=== PATIENT | male | born 1950 | race Caucasian/White ===

== ENCOUNTER 2024-12-14 07:46 | Observation (INO) ==
--- NOTE | 2024-11-13 12:25 | PAT Medication Instructions ---
Medication Instructions Date of Service November 13, 2024 Home Medications ascorbic acid (vitamin C) 500 mg tablet (Vitamin C) 500 mg PO DAILY aspirin 81 mg capsule 81 mg PO DAILY furosemide 20 mg tablet 20 mg PO DAILY PRN Edema gabapentin 300 mg capsule 900 mg PO HS PRN Pain hydrochlorothiazide 12.5 mg tablet 12.5 mg PO QAM latanoprost 0.005 % eye drops 1 drp ophthalmic (eye) PM losartan 100 mg tablet 100 mg PO QAM metformin 500 mg tablet 500 mg PO QPM metoprolol tartrate 25 mg tablet 25 mg PO BID multivitamin 1 tab PO QAM pravastatin 80 mg tablet 80 mg PO HS semaglutide 2 mg/dose (8 mg/3 mL) subcutaneous pen injector (Ozempic) 2 mg subcut WK timolol 0.25 % eye drops 1 drp ophthalmic (eye) DAILY topiramate 25 mg tablet 25 mg PO QAM PRN Pain ASK your prescriber and surgeon aspirin 81 mg capsule 81 mg PO DAILY DO NOT take the morning of surgery ascorbic acid (vitamin C) 500 mg tablet (Vitamin C) 500 mg PO DAILY furosemide 20 mg tablet 20 mg PO DAILY PRN Edema hydrochlorothiazide 12.5 mg tablet 12.5 mg PO QAM losartan 100 mg tablet 100 mg PO QAM multivitamin 1 tab PO QAM Take morning of surgery With a small sip of water, OTHERWISE NOTHING TO EAT OR DRINK AFTER MIDNIGHT: metoprolol tartrate 25 mg tablet 25 mg PO BID timolol 0.25 % eye drops 1 drp ophthalmic (eye) DAILY topiramate 25 mg tablet 25 mg PO QAM PRN Pain (if needed) Take evening before surgery furosemide 20 mg tablet 20 mg PO DAILY PRN Edema (if needed) gabapentin 300 mg capsule 900 mg PO HS PRN Pain (if needed) latanoprost 0.005 % eye drops 1 drp ophthalmic (eye) PM metformin 500 mg tablet 500 mg PO QPM metoprolol tartrate 25 mg tablet 25 mg PO BID pravastatin 80 mg tablet 80 mg PO HS STOP 7 days prior to surgery semaglutide 2 mg/dose (8 mg/3 mL) subcutaneous pen injector (Ozempic) 2 mg subcut WK Other Notes If you have any questions please call us at [phone] or [phone] or [phone] or [phone]
--- NOTE | 2024-11-19 08:45 | Anesthesiology Consultation ---
Date of Service November 19, 2024 Assessment & Plan (1) Encounter for pre-operative examination: - Check BSG DOS - Infectious disease screening: Per assessment on 11/19/24- No known recent infectious disease contacts or current infectious disease symptoms. - GLP-1 medication instructions: Patient informed by PAT to stop 7 days prior to surgery- voiced understanding. DOS 12/14. Advised last dose to be 7/6. - Patient request: Request avoiding/limiting medications that are more likely to cause post-op memory impairment if/when possible. - Patient acceptable risk for surgery pending surgeon-ordered PCP preop evaluation (Dr. Olive Najera, "already done" per patient). Chart Review Chart Review: Patient seen in Pre Admission Testing Teaching & Discussion Pre-Anesthesia Teaching/Discussion Notes: Instructed NPO after midnight before surgery,except medications with 15 cc of water. Medication instructions provided according to the PAT guidelines. History Surgery Operation Date: 12/14/24 07:45 Proposed Procedures p L3 - S1 Decompression and Fusion Spinal Cord Monitoring - Ken Yoder, Height/Weight Height: 6 ft 1 in Weight: 132.9 kg Allergies Allergy/AdvReac Type Severity Reaction Status Date / Time No Known Allergies Allergy Verified 11/12/24 07:51 Medications Home Medications Medication Instructions Recorded Confirmed Last Taken ascorbic acid (vitamin C) 500 mg 500 mg PO DAILY 11/12/24 11/12/24 Unknown tablet (Vitamin C) aspirin 81 mg capsule 81 mg PO DAILY 11/12/24 11/12/24 Unknown furosemide 20 mg tablet 20 mg PO DAILY PRN Edema 11/12/24 11/12/24 Unknown gabapentin 300 mg capsule 900 mg PO HS PRN Pain 11/12/24 11/12/24 Unknown hydrochlorothiazide 12.5 mg tablet 12.5 mg PO QAM 11/12/24 11/12/24 Unknown latanoprost 0.005 % eye drops 1 drp ophthalmic (eye) PM 11/12/24 11/12/24 Unknown losartan 100 mg tablet 100 mg PO QAM 11/12/24 11/12/24 Unknown metformin 500 mg tablet 500 mg PO QPM 11/12/24 11/12/24 Unknown metoprolol tartrate 25 mg tablet 25 mg PO BID 11/12/24 11/12/24 Unknown multivitamin 1 tab PO QAM 11/12/24 11/12/24 Unknown pravastatin 80 mg tablet 80 mg PO HS 11/12/24 11/12/24 Unknown semaglutide 2 mg/dose (8 mg/3 mL) 2 mg subcut WK 11/12/24 11/12/24 Unknown subcutaneous pen injector (Ozempic) timolol 0.25 % eye drops 1 drp ophthalmic (eye) DAILY 11/12/24 11/12/24 Unknown topiramate 25 mg tablet 25 mg PO QAM PRN Pain 11/12/24 11/12/24 Unknown Past Medical History Medical History Arthritis Chronic low back pain Diabetes Dyslipidemia Edema of both lower legs Occasional, takes PRN lasix approximately once/month Glaucoma (increased eye pressure) HTN (hypertension) Sleep apnea CPAP (compliant) Spinal stenosis Exercise / Class Metabolic Activity III < 4 Walking/Shop/Light housework (uses cane) Past Surgical History Surgical History History of bilateral knee replacement x2 History of right hip replacement ~2022 Hx of appendectomy Hx of bilateral cataract extraction Hx of cholecystectomy Hx of colonoscopy Hx of hand surgery Past Anesthesia History No Hx of Anesthesia Complications and No Family Hx of Anesthesia Complications History of PONV No Hx of PONV and No Hx of Motion Sickness Social History Smoking Status: Former smoker Do You Dip or Chew Tobacco: No Smoking End Date: Quit 30 years ago Hx Alcohol Use: No Hx Substance Use: No substance use type: does not use Review of Systems Patient denies chest pain, shortness of breath, fever, chills, cough, wheezing. Physical Exam Vital Signs BP 133/76 P 56 TEMP 97.6 SP02 95%RA RESP 56 Physical Full cervical extension range of motion. Full TMJ range of motion. TMD > 3.5 finger breaths Mallampati Score II Dentition: missing molars Lungs: clear throughout to auscultation Cardiac: regular rate and rhythm, no murmurs noted Spine: normal Carotid arteries: negative bruit Extremities: no LE edema Lab Results Anesthesia Preop Results Results Anesthesia Widget: WBC 9.92 K/ul (4.8-10.8) 11/19/24 Hgb 14.1 g/dl (14.0-18.0) 11/19/24 Hct 41.4 % (42.0-52.0) L 11/19/24 Plt 191 K/uL (130-400) 11/19/24 Na 135 mmol/L (136-145) L 11/19/24 K 3.7 mmol/L (3.5-5.1) 11/19/24 Cl 101 mmol/L (98-107) 11/19/24 CO2 29 mmol/L (21-32) 11/19/24 BUN 17 mg/dl (6-23) 11/19/24 Creat 0.98 mg/dl (0.6-1.4) 11/19/24 Glucose Level 121 mg/dl (70-99(Fasting)) H 11/19/24 PT 10.7 Seconds (9.0-12.0) 11/19/24 PTT 28 Seconds (21-31) 11/19/24 INR 1.0 (0.9-1.1) 11/19/24 HA1c 6.8 % (4.5-5.6) H 11/19/24 Urine Color Yellow 11/19/24 Urine Appearance Clear (Clear) 11/19/24 Urine pH 5.0 (4.5-7.5) 11/19/24 Urine Specific [place] 1.022 (1.000-1.030) 11/19/24 Urine Protein Negative (Negative) 11/19/24 Urine Glucose (UA) Negative (Negative) 11/19/24 Urine Ketones Trace (Negative) H 11/19/24 Urine Blood Negative (Negative) 11/19/24 Urine Nitrite Negative (Negative) 11/19/24 Urine Bilirubin Negative (Negative) 11/19/24 Urine Urobilinogen Negative (Negative) 11/19/24 Urine Leukocyte Esterase Negative (Negative) 11/19/24 Blood Type A Positive 11/19/24 Antibody Screen NEGATIVE 11/19/24 Testing Laboratory Results Urine nicotine metabolite- positive (surgeon's office made aware) Electrocardiogram Date: 11/19/24 SB at 56bpm. "Otherwise normal ECG" Chest X-Ray Date: 11/19/24 FINDINGS: There is mild cardiomegaly without pulmonary vascular congestion. No effusion or consolidation. Stable mild elevation of the left hemidiaphragm. IMPRESSION: No acute findings.
[~2024-12-14 07:46] MED LIST: LIDOCAINE 2% 2 ML VIAL/AMP(20MG/ML) INFIL ONE; MIDAZOLAM HCL 1 MG/ML 2ML VIAL ONE; ONDANSETRON INJ 2 MG/ML 2 ML VIAL ONE; PROPOFOL IV EMULSION 10 MG/ML 100 ML VIAL IV ONE; PROPOFOL IV EMULSION 10 MG/ML 20 ML VIAL IV ONE; ROCURONIUM BROMIDE 10 MG/ML 5 ML VIAL IV ONE; SUGAMMADEX SODIUM 200 MG/2 ML VIAL IV ONE
[2024-12-14] MEDS ORDERED: PROMETHAZINE HCL 6.25 MG in SODIUM CHLORIDE 0.9% 50 ML IV PRN (08:11)
[2024-12-14] MEDS ORDERED: ATROPINE SULFATE 0.1 MG/ML 10ML SYR IV PRN (08:11)
[2024-12-14] MEDS: LR 15ML/HR IV SCH (08:25)
[2024-12-14] MEDS: LR 60ML/HR IV SCH (08:25)
[2024-12-14] MEDS: GABAPENTIN 300 MG CAP PO SCH (08:26)
[2024-12-14] MEDS: CeleBREX 200 MG CAP PO SCH (08:26)
[2024-12-14] MEDS: ACETAMINOPHEN 500 MG TAB PO SCH (08:26)
--- NOTE | 2024-12-14 08:54 | History & Physical Bridge Note ---
Date of Service December 14, 2024 History & Physical Bridge Note I have examined the patient, reviewed the History & Physical and in the interval since the performance of the History & Physical I have noted the following changes of clinical significance: no changes noted
--- NOTE | 2024-12-14 08:55 | History & Physical Report ---
Date of Service December 14, 2024 Assessment & Plan (1) Lumbosacral spondylosis with radiculopathy: Plan: L3-S1 decompression fusion History of Present Illness Chief Complaint: Back and bilateral leg pain Primary Care Provider: Olive Najera DO This is a 74-year-old male who presents for chronic persistent back and bilateral knee pain failing since course of nonoperative care is here for surgical intervention. Allergies Allergy/AdvReac Type Severity Reaction Status Date / Time No Known Allergies Allergy Verified 12/14/24 07:57 Home Medications Medication Instructions Recorded Confirmed Type ascorbic acid (vitamin C) 500 mg 500 mg PO DAILY 11/12/24 12/14/24 History tablet (Vitamin C) aspirin 81 mg capsule 81 mg PO DAILY 11/12/24 12/14/24 History furosemide 20 mg tablet 20 mg PO DAILY PRN Edema 11/12/24 12/14/24 History gabapentin 300 mg capsule 900 mg PO HS PRN Pain 11/12/24 12/14/24 History hydrochlorothiazide 12.5 mg tablet 12.5 mg PO QAM 11/12/24 12/14/24 History latanoprost 0.005 % eye drops 1 drp ophthalmic (eye) PM 11/12/24 12/14/24 History losartan 100 mg tablet 100 mg PO QAM 11/12/24 12/14/24 History metformin 500 mg tablet 500 mg PO QPM 11/12/24 12/14/24 History metoprolol tartrate 25 mg tablet 25 mg PO BID 11/12/24 12/14/24 History multivitamin 1 tab PO QAM 11/12/24 12/14/24 History pravastatin 80 mg tablet 80 mg PO HS 11/12/24 12/14/24 History semaglutide 2 mg/dose (8 mg/3 mL) 2 mg subcut WK 11/12/24 12/14/24 History subcutaneous pen injector (Ozempic) timolol 0.25 % eye drops 1 drp ophthalmic (eye) DAILY 11/12/24 12/14/24 History topiramate 25 mg tablet 25 mg PO QAM PRN Pain 11/12/24 12/14/24 History Past Med/Surg History Problem List (Updated 12/14/24 @ 08:55 by Ken Yoder DO) Lumbosacral spondylosis with radiculopathy Encounter for pre-operative examination Medical History Arthritis Chronic low back pain Diabetes Dyslipidemia Edema of both lower legs Occasional, takes PRN lasix approximately once/month Glaucoma (increased eye pressure) HTN (hypertension) Sleep apnea CPAP (compliant) Spinal stenosis Surgical History History of bilateral knee replacement x2 History of right hip replacement ~2022 Hx of appendectomy Hx of bilateral cataract extraction Hx of cholecystectomy Hx of colonoscopy Hx of hand surgery Social History Smoking Status: Former smoker Tobacco Type: Cigarettes Smoking End Date: Quit 30 years ago; Second Hand Exposure: No; Do You Dip or Chew Tobacco: No; Tobacco Cessation Education Requested by Patient: No Hx Alcohol Use: No Hx Substance Use: No Preferred Language: Spanish Communication Ability: Effective Speech And Language Specialist Required: No Beliefs That Will Affect Care: None Current Living Situation: Spouse Other Information That Helps Us Care for You: No Feels Safe at Home: Yes Safety Concerns: Feels Safe At This Time Assistive Devices: Cane, CPAP and Glasses Physical Exam Physical Exam: Patient is alert and oriented Heart regular in rhythm Lungs clear Results & Data Results & Data Vital Signs (Past 12 Hours) Vital Signs Temp Pulse Resp BP Pulse Ox O2 Del Method 12/14/24 08:07 36.7 C 59 L 20 172/69 H 96 Room Air
[2024-12-14] MEDS ORDERED: PHENYLEPHRINE 100MCG/ML 5ML SYR ONE (09:07)
[2024-12-14] MEDS ORDERED: ePHEDrine sulfate 50 MG/5 ML SYR ONE (09:07)
[2024-12-14] MEDS: ceFAZolin 3000MG 3,000 MG/72.5 ML BAG IV SCH ×2 (09:23→17:02)
[2024-12-14] MEDS ORDERED: DEXAMETHASONE SOD INJ 4 MG/ML VIAL ONE (09:33)
[2024-12-14] MEDS ORDERED: GLYCOPYRROLATE 0.2 MG/ML VIAL ONE (09:56)
[2024-12-14] MEDS ORDERED: ROCURONIUM BROMIDE 10 MG/ML 5 ML VIAL IV ONE (09:59)
[2024-12-14] MEDS: ceFAZolin 330 MG/ML 1 GM VIAL ONE (10:15)
[2024-12-14] MEDS: BUPIVACAINE/EPINEPHRINE 0.25% 1:200,000 30 ML VIAL ONE (10:15)
[2024-12-14] MEDS ORDERED: PROPOFOL IV EMULSION 10 MG/ML 100 ML VIAL IV ONE (10:22)
[2024-12-14] MEDS: FLOSEAL HEMOSTATIC MATRIX 10ML TOP ONE (11:58)
[2024-12-14] MEDS ORDERED: ALBUMIN HUMAN 5% 12.5 GM/250 ML VIAL IV ONE (12:03)
[2024-12-14] MEDS ORDERED: HYDROmorphone INJ 2 MG/ML SYR/VIAL ONE (12:15)
--- NOTE | 2024-12-14 12:21 | Operative Report ---
Post Operative Report Pre & Post Diagnosis Operation Date: 12/14/24 09:15 Pre-Op Diagnosis: Lumbosacral spondylosis with radiculopathy Post-Op Diagnosis: Lumbosacral spondylosis with radiculopathy I identified the patient and participated in the time-out.: Yes Procedure Operation Date: 12/14/24 09:15 Actual Procedures #1 lumbar decompression with bilateral medial facetectomies and foraminotomies L3-L4, L4-L5 and L5-S1. #2 posterior spinal fusion L3-S1. #3 placement posterior segmental instrumentation L3-S1 using [place]. #4 interbody fusion L3-L4 L4-L5 #5 placement of Spira 13 x 26 mm at L3-L4 and 14 x 26 mm x 2 at L4- L5 #6 placement locally harvested to my side autograft in the posterior gutters. #7 placement infuse collagen sponge combined with Koros in the posterior lateral gutters and os design interbody space. #8 application of versa wrap over the exposed dura. Surgeon Ken Yoder, DO [employer] Service Advisor Betty Borrero Estimated Blood Loss 1,000 Findings See Below The patient is 6 foot 1 weighing over 134 kg with a BMI in excess of 39. This combined with an EBL of greater than 1000 cc. His significant technical difficulty with positioning exposure and the procedure itself. This had at least 50% increased operative time. Recommending a modifier 22. Specimens None Indications This is a 74-year-old male presents from his diagnosis after failing course of nonoperative care is here for surgical invention. Description of Procedure Patient was met with identified informed consent obtained. Patient was then taken to the operative suite underwent intubation placed in the prone position on the Lane table on top of the Gael frame. All bony prominences well- padded eyes inspected to ensure no external pressure placed upon them. This point lumbar spine was prepped and draped in the normal sterile fashion. Sharp dissection with the assistance of Bovie cautery was performed down to and exposing the lamina transverse processes of L3-L4-L5 and the sacral ala bilaterally. From a [place] 5 fashion complete laminectomy of L5 L4 and L3 was performed including bilateral medial facetectomies and foraminotomies addressing severe neural compression. Pedicle screws then placed in L3-L4-L5 and S1 levels bilaterally with assistance of fluoroscopy and the purposes annalise placed. 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 I did a pproach L4-L5 by way of a transforaminal approach on the left a discectomy was performed endplates cut to distal cortical bleeding bone and a 14 x 26 mm spiral cage tapped into position. Then proceeded to the right transforaminal region at L4-5. Again discectomy performed. Endplates coated to subcortical bleeding bone. A second 14 x 26 mm spiral cage tapped in position. Then proceeded to L3-L4 and bilayer transforaminal approach on the right a complete discectomy was performed endplates corrected to subcortical bleeding bone and a 13 x 26 mm spiral cage tapped into position. Please note all cages were filled with loss design bone graft. The rods were then locked in a final position bilaterally. The transverse processes of L3-L4-L5 and sacral ala burred to subcortical being bone. Infuse collagen sponge, with Koros and local autograft placed posterior lateral gutters. First wrap placed over the exposed dura. 15 round SUZANNA drain inserted. The incision was then closed with 1 Vicryl the fascia 2-0 Vicryl subcutaneously and 4-0 Monocryl for final skin closure. Steri-Strips sterile dressing placed. Patient waken taken to PACU stable condition. Please note Betty Borrero was present at the entire procedure and all the patient positioning complex portion of the surgery and final skin closure. I attest to the content of the Intraoperative Record and any orders documented therein. Any exceptions are noted below.
--- NOTE | 2024-12-14 12:35 | Fluoroscopy Report ---
FL lumbar spine 2-3V CLINICAL HISTORY: L3-S1 DECOMP AND FUSION COMPARISON STUDY: None FLUOROSCOPY TIME: 24 seconds FLUOROSCOPY IMAGES: 4 EXPOSURE DOSE: 25 mGy FINDINGS: Fluoroscopy was provided for lumbar metallic fusion. IMPRESSION: Intraoperative fluoroscopy. ACT 112: Negative or not required by law. Electronically signed by: Fabrice Antoine M.D. 12/14/2024 12:33 PM
[2024-12-14] MEDS: HYDROmorphone INJ 2 MG/ML SYR/VIAL IV PRN (13:10)
[2024-12-14 13:24] LABS: Hematocrit (blood only) 37.5 % (42.0-52.0); Hemoglobin 12.4 g/dl (14.0-18.0)
[2024-12-14] MEDS ORDERED: GABAPENTIN 300 MG CAP PO PRN (14:28)
[2024-12-14] MEDS ORDERED: ACETAMINOPHEN 500 MG TAB PO PRN (14:28)
[2024-12-14] MEDS ORDERED: LORazepam 0.5 MG TAB PO PRN (14:28)
[2024-12-14] MEDS ORDERED: PROMETHAZINE 12.5 MG/50.5 ML BAG IV PRN (14:28)
[2024-12-14] MEDS ORDERED: FAMOTIDINE 20 MG TAB PO PRN (14:28)
[2024-12-14] MEDS ORDERED: ACETAMINOPHEN 1,000 MG/100 ML VIAL IV PRN (14:28)
[2024-12-14] MEDS ORDERED: NALOXONE HCL 0.4 MG/1 ML VIAL/CARP IV PRN (14:28)
[2024-12-14] MEDS ORDERED: ONDANSETRON INJ 2 MG/ML 2 ML VIAL IV PRN (14:28)
[2024-12-14] MEDS ORDERED: ALUMINUM/MAGNESIUM SUSP 30 ML UDC PO PRN (14:28)
[2024-12-14] MEDS ORDERED: SOD PHOSPHATE/SOD BIPHOSPHATE ENEMA 132 ML BTL PR PRN (14:28)
[2024-12-14] MEDS ORDERED: MAGNESIUM HYDROXIDE SUSP 30 ML UDC PO PRN (14:28)
[2024-12-14] MEDS ORDERED: TOPIRAMATE 25 MG TAB PO PRN (14:28)
[2024-12-14] MEDS ORDERED: HYDROmorphone INJ 1 MG/ML SYRINGE IV PRN (14:28)
[2024-12-14] MEDS ORDERED: PHARMACY GLYCEMIC MGMT CONSULT PRN (14:28)
[2024-12-14] MEDS ORDERED: METOCLOPRAMIDE HCL INJ 5 MG/ML 2 ML VIAL IV PRN (14:28)
[2024-12-14] MEDS ORDERED: diphenhydrAMINE Capsule 25 MG CAP PO PRN (14:28)
[2024-12-14] MEDS ORDERED: DO NOT ADMINISTER PNEUMOCOCCAL VACCINE PRN (14:28)
[2024-12-14] MEDS ORDERED: DO NOT ADMINISTER FLU VACCINE PRN (14:28)
[2024-12-14] MEDS ORDERED: ONDANSETRON 4 MG OD TAB PO PRN (14:28)
[2024-12-14] MEDS ORDERED: HYDROmorphone INJ 0.5 MG/0.5 ML SYR IV PRN (14:28)
[2024-12-14] MEDS ORDERED: GLUCOSE 40% GEL 15 GM TUBE PO PRN (14:45)
[2024-12-14] MEDS ORDERED: CARBOHYDRATES FOR HYPOGLYCEMIA PO PRN (14:45)
[2024-12-14] MEDS ORDERED: GLUCOSE 10 TAB/TUBE PO PRN (14:45)
[2024-12-14] MEDS ORDERED: DEXTROSE 50% 50 ML SYRINGE IV PRN (14:45)
[2024-12-14] MEDS ORDERED: GLUCAGON FOR INJ 1 MG VIAL SQ PRN (14:45)
--- NOTE | 2024-12-14 14:48 | Anesthesiology Progress Note ---
Date of Service December 14, 2024 Anesthesia Post Procedure Vital Signs Vital Signs: Temp Pulse Pulse Resp BP Pulse Ox O2 Del Method 12/14/24 14:30 Nasal Cannula 12/14/24 14:30 36.5 C 62 18 114/72 95 Nasal Cannula 12/14/24 13:55 36.4 C L 68 12 132/68 93 Nasal Cannula 12/14/24 13:45 66 12 140/74 93 Nasal Cannula 12/14/24 13:30 64 12 129/77 94 Oxymask 12/14/24 13:20 66 12 147/69 H 95 Oxymask 12/14/24 13:10 71 14 154/70 H 94 Oxymask 12/14/24 13:00 76 12 143/70 H 92 Oxymask 12/14/24 12:49 36.4 C L 76 12 133/56 L 93 Oxymask 12/14/24 08:07 36.7 C 59 L 20 172/69 H 96 Room Air O2 Flow Rate 12/14/24 14:30 3 12/14/24 14:30 3 12/14/24 13:55 3 12/14/24 13:45 3 12/14/24 13:30 4 12/14/24 13:20 8 12/14/24 13:10 8 12/14/24 13:00 10 12/14/24 12:49 10 12/14/24 08:07 Pain Intensity Back: Pain Intensity: 7 Transfer of Care Handoff Completed per policy Notes Mental Status: alert / awake / arousable and participated in evaluation Nausea / Vomiting: adequately controlled Pain: adequately controlled Airway Patency, RR, SpO2: stable & adequate BP & HR: stable & adequate Hydration State: stable & adequate Anesthetic Complications: no major complications apparent and Pt Satisfied with anesthetic care
--- NOTE | 2024-12-14 14:48 | Pharmacy Report ---
Pharmacy Glycemic Short Note 2 - Date of Service December 14, 2024 - Glycemic Short BSG Results (Last 24 hours): 12/14/24 08:42 POC Glucose 138 H OUTPATIENT ANTIDIABETIC REGIMEN: * metformin 500 mg qpm, ozempic 2 mg SQ weekly ASSESSMENT: * 74 year old s/p surgery, POD 0 - pharmacy consulted for glycemic management. BSG 138 mg/dL this AM - no postop BSG drawn yet, however did pull IV steroids in OR therefore anticipate steroid induced hyperglycemia. Will order novolog ACHS and add on scale for Lantus at dinner if BSGs start to increase. PLAN FOR INPATIENT GLYCEMIC CONTROL: * Hold outpatient oral diabetes medications * Basal insulin * Lantus 0-15 units today at 1700 * Bolus insulin * NovoLog per scale ACHS or Q6hrs while NPO * Goal Range: Low 110 mg/dL - High 140 mg/dL * Correction Factor: 20 mg/dL/unit * Nutritional / Prandial insulin per carb ratio of 1 unit per 7 grams CHO consumed
[2024-12-14] MEDS: LANTUS PER UNIT CHARGE SC SCH (16:56)
[2024-12-14] MEDS: INSULIN ASPART PER UNIT CHARGE SC SCH (17:02)
--- NOTE | 2024-12-14 19:12 | Hospitalist Progress Note ---
Date of Service December 14, 2024 Assessment & Plan (1) Diabetes: (2) HTN (hypertension): Plan #Status post lumbar spine surgeryper orthopedics #diabeteshe notes good control at home. Fingersticks and supplemental insulin. Role into basal bolus regimen if necessary. Pharmacy glycemic consult has been placed by orthopedics #Hypertensioncontinue on home medications. Follow blood pressure. #dyslipidemiacontinue pravastatin #DVT prophylaxisper orthopedics (SCDs and teds) Admission and Anticipated Discharge Date Admission Date: December 14, 2024 Subjective Seen postop for consult for medication management. Patient's main chronic medical problems are hypertension (he notes well-controlled) and diabetes (notes his last A1c was less than 7) currently his pain is under good control. No active complaints. Review of Systems Review of Systems: All systems reviewed & are unremarkable except as noted in HPI & below Physical Exam Physical Exam: In general he is awake and alert pleasant no distress. HEENT normocephalic atraumatic mucous membranes moist. Breathing unlabored no accessory muscle use good effort. Skin without rashes pallor or icterus. Neuro without focal def icits. Results & Data Results & Data Vital Signs (Past 12 Hours) Vital Signs Temp Pulse Pulse Resp BP Pulse Ox O2 Del Method 12/14/24 17:30 98.4 F 57 L 18 175/80 H 98 Room Air 12/14/24 16:48 69 18 151/80 H 100 Nasal Cannula 12/14/24 15:22 57 L 16 138/81 98 Nasal Cannula 12/14/24 15:05 97.3 F L 58 L 18 135/78 98 Nasal Cannula 12/14/24 14:30 Nasal Cannula 12/14/24 14:30 97.7 F 62 18 114/72 95 Nasal Cannula 12/14/24 13:55 97.5 F L 68 12 132/68 93 Nasal Cannula 12/14/24 13:45 66 12 140/74 93 Nasal Cannula 12/14/24 13:30 64 12 129/77 94 Oxymask 12/14/24 13:20 66 12 147/69 H 95 Oxymask 12/14/24 13:10 71 14 154/70 H 94 Oxymask 12/14/24 13:00 76 12 143/70 H 92 Oxymask 12/14/24 12:49 97.5 F L 76 12 133/56 L 93 Oxymask 12/14/24 08:07 98.1 F 59 L 20 172/69 H 96 Room Air O2 Flow Rate 12/14/24 17:30 12/14/24 16:48 2 12/14/24 15:22 2 12/14/24 15:05 3 12/14/24 14:30 3 12/14/24 14:30 3 12/14/24 13:55 3 12/14/24 13:45 3 12/14/24 13:30 4 12/14/24 13:20 8 12/14/24 13:10 8 12/14/24 13:00 10 12/14/24 12:49 10 12/14/24 08:07 PG Care Time/CCT Total # of Minutes Spent Total Time Spent with Patient: Total time spent is greater than 50% in coordination of care (as documented) at patient's floor/unit and/or counseling patient: Coding Level of Care Code 06778 SUB INP/OBS CARE 2/35MIN Diagnoses Diabetes E11.9 HTN (hypertension) I10
[2024-12-14] MEDS: DOCUSATE SODIUM/SENNA 50/8.6MG TAB PO SCH (21:29)
[2024-12-14] MEDS: LATANOPROST 0.005% OP SOLN 2.5 ML BTL OP SCH (21:30)
[2024-12-14] MEDS: PRAVASTATIN SOD 40 MG TAB PO SCH (21:32)
[2024-12-14] MEDS: METOPROLOL TARTRATE 25 MG TAB PO SCH (21:32)
[2024-12-15] MEDS: INSULIN ASPART PER UNIT CHARGE SC SCH (00:21)
[2024-12-15] MEDS: POLYETHYLENE (MIRALAX) 17 GM PACK PO SCH (06:01)
[2024-12-15 06:04] LABS: Hematocrit (blood only) 33.3 % (42.0-52.0); Hemoglobin 10.9 g/dl (14.0-18.0); Immature Granulocytes # (auto) 0.08 K/uL (0.01-0.20); Immature Granulocytes % (auto) 0.6 %; Mean Corpuscular Hemoglobin 30.1 pg (25.0-34.0); Mean Corpuscular Volume 92.0 fL (80.0-100.0); Platelet Count 160 K/uL (130-400); RDW Standard Deviation 46.6 fL (36.4-46.3); Red Blood Count 3.62 M/uL (4.70-6.10); White Blood Count 13.76 K/ul (4.8-10.8)
[2024-12-15 06:21] LABS: Anion Gap 5.0 (3-11); Blood Urea Nitrogen 19.0 mg/dl (6-23); Calcium 8.5 mg/dl (8.6-10.3); Carbon Dioxide 30.0 mmol/L (21-32); Chloride 100.0 mmol/L (98-107); Creatinine Clr Calc Pharmacy 86.1 ml/min; Glucose 145.0 mg/dl (70-99(Fasting)); Potassium 4.6 mmol/L (3.5-5.1); Sodium 135.0 mmol/L (136-145)
[2024-12-15] MEDS: hydroCHLOROthiazide 25 MG TAB PO SCH (08:01)
[2024-12-15] MEDS: MULTIVITAMIN TAB PO SCH (08:02)
[2024-12-15] MEDS: FUROSEMIDE 20 MG TAB PO PRN (08:02)
[2024-12-15] MEDS: ASPIRIN 81 MG ECTAB PO SCH (08:02)
[2024-12-15] MEDS: LOSARTAN POTASSIUM 50 MG TAB PO SCH (08:02)
[2024-12-15] MEDS: ASCORBIC ACID 500 MG TAB PO SCH (08:03)
[2024-12-15] MEDS: TIMOLOL MALEATE 0.25% OP SOLN 5 ML BTL OP SCH (08:03)
[2024-12-15] MEDS: dexAMETHasone 6 MG in SYRINGE 0 ML IV SCH (08:04)
--- NOTE | 2024-12-15 13:33 | Orthopedic Progress Note ---
Date of Service December 15, 2024 Assessment & Plan (1) Lumbosacral spondylosis with radiculopathy: Plan: This time we will continue physical therapy monitor his SUZANNA output anticipate discharge home in the next few days. Admission and Anticipated Discharge Date Admission Date: December 14, 2024 Subjective Back pain is controlled leg pain improved Physical Exam Physical Exam: Patient is in the chair at the bedside. Discussing the testing. Is comfor table. Results & Data Vital Signs (Past 12 Hours) Vital Signs Temp Pulse Resp BP Pulse Ox O2 Del Method 12/15/24 11:00 37 C 74 16 127/70 98 Room Air 12/15/24 07:02 37 C 76 16 137/62 98 Room Air 12/15/24 07:00 CPAP 12/15/24 03:25 36.5 C 64 18 132/70 97 Room Air Queries Orthopedic Spine Acute Posthemorrhagic Anemia: Yes Obesity: Yes
--- NOTE | 2024-12-15 17:56 | Communication Note ---
Date of Service: December 15, 2024 chart reviewed, pt sleeping comfortably when i went to see him. BP reasonable, sugars being managed by glycemic pharmacist, acute blood loss anemia (not un expected given surgery) noted but he is hemodynamically stable/no intervention appears to be needed. hospitalist team will sign off at this time, available if we can be of any assistance
--- NOTE | 2024-12-16 09:24 | Orthopedic Progress Note ---
Date of Service December 16, 2024 Assessment & Plan (1) Lumbosacral spondylosis with radiculopathy: Plan: At this time continue physical therapy monitor his SUZANNA output anticipate discharge home tomorrow. Admission and Anticipated Discharge Date Admission Date: December 14, 2024 Subjective Back pain controlled leg symptoms improved. Physical Exam Physical Exam: Patient in chair at the bedside. Comfortable. Distracted testing. Results & Data Vital Signs (Past 12 Hours) Vital Signs Temp Pulse Resp BP Pulse Ox O2 Del Method 12/16/24 08:49 Room Air 12/16/24 08:25 36.6 C 91 H 16 126/70 91 Room Air 12/15/24 21:36 Room Air Queries Orthopedic Spine Acute Posthemorrhagic Anemia: Yes Obesity: Yes
--- NOTE | 2024-12-16 09:50 | Pharmacy Report ---
Pharmacy Glycemic Short Note 2 - Date of Service December 16, 2024 - Glycemic Short BSG Results (Last 24 hours): 12/15/24 12/15/24 12/15/24 11:33 16:35 20:00 POC Glucose 140 H 154 H 146 H 12/16/24 07:27 POC Glucose 121 H OUTPATIENT ANTIDIABETIC REGIMEN: * metformin 500 mg qpm, ozempic 2 mg SQ weekly * HbA1c 6.8% (11/19/24) ASSESSMENT: 12/16 * Fabrice received 21 units of bolus insulin yesterday * Fasting BSG this AM within goal range, no indication for basal insulin at this time. * No changes to NovoLog, currently at a weight based stress of 2.5, dexamethasone 6mg IV daily day 07/06 today 12/14 * 74 year old s/p surgery, POD 0 - pharmacy consulted for glycemic management. BSG 138 mg/dL this AM - no postop BSG drawn yet, however did pull IV steroids in OR therefore anticipate steroid induced hyperglycemia. Will order novolog ACHS and add on scale for Lantus at dinner if BSGs start to increase. PLAN FOR INPATIENT GLYCEMIC CONTROL: * Hold outpatient oral diabetes medications * Basal insulin * hold * Bolus insulin * NovoLog per scale ACHS or Q6hrs while NPO * Goal Range: Low 110 mg/dL - High 140 mg/dL * Correction Factor: 20 mg/dL/unit * Nutritional / Prandial insulin per carb ratio of 1 unit per 7 grams CHO consumed
[2024-12-16 21:17] VITALS: RESP 18
[2024-12-17 08:13] VITALS: BP 158/73; PULSE 72; TEMP 97.5; O2SAT 98
--- NOTE | 2024-12-17 08:19 | Discharge Summary ---
Date of Service December 17, 2024 Admission HPI Per Admitting Provider This is a 74-year-old male who presents for chronic persistent back and bilateral knee pain failing since course of nonoperative care is here for surgical intervention. Admission Exam (Per Admitting) Constitutional WD/WN, vitals as above Eyes normal visual arriola by confrontation ENMT external ear and nose normal, oropharynx normal Neck normal visual inspection Respiratory normal respiratory effort Cardiovascular Extremities: normal capillary refill Gastrointestinal (Abdomen) Inspection/Auscultation: abdomen normal to inspection Musculoskeletal Spine: + pain with thoraco-lumbar ROM Extremities: extremities normal to inspection and strength 5/5 throughout Skin no rashes, warm and dry Neurologic normal touch/pain/proprioception and moves all extremities Psychiatric A+Ox3, euthymic affect Eye Contact: good eye contact Discharge Data Consultations 12/14/24 14:28 Consult Hospitalist Routine Procedures Performed Operation Date: 12/14/24 09:15 Actual Procedures p L3-S1 Decompression and Fusion(Not Applicable) - Ken Yoder, Hospital Course (1) Lumbosacral spondylosis with radiculopathy: Fabrice is being discharged home on postoperative day 3 status post L3-S1 decompression and fusion. He has had an uneventful hospital course. He is being discharged home today. He is making great progress in physical therapy. Pain is controlled. He has had a bowel movement. Lab values have been stable Discharge Instructions ACTIVITY RECOMMENDATIONS: SELF CARE INSTRUCTIONS AFTER THORACIC/LUMBAR FUSIONS 1. You may walk to your tolerance. It is good exercise for your legs and back. Expect some back and intermittent leg aches and pains. 2. You may perform "counter-top" level activities (make a sandwich, isi with a project, etc.). 3. No bending or lifting of more than 10 pounds or back twisting of any nature (roll like a log when turning in bed). 4. You may ride in a car for 20-30 minutes at a time. No driving until after your first visit with your doctor. 5. Frequent changes of position and restricting sitting to 30 minutes at a time will help limit the amount of back spasms and stiffness you may experience. 6. You may discontinue the use of ambulatory aids (cane, crutches, etc.) once your strength and confidence allow. 7. You may bioprocess engineer the shower and let water strike your incision when you arrive home at least once daily. Do not take a tub bath, sit in a hot tub or go into a swimming pool until after your first recheck in the office. 8. You may resume previous diet. SPECIAL CARE INSTRUCTIONS: VERY IMPORTANT TO READ AND REVIEW A. Your surgical incision has been closed with a cosmetic suture under the skin that will dissolve in about 6 weeks. In 14 days, you can use a pair of clean scissors and cut the suture that is left outside of the skin at the ends of your incision. 1. The small skin tapes can be removed 7 days after surgery if they have not fallen off by that point. 2. You may keep the wound open to air as much as possible to promote healing after post-op day number 5 unless told otherwise by your doctor. 3. If you think the wound looks like it is becoming infected (redness or worsening drainage) and/or you are experiencing fever, chill or worsening back pain and muscle spasms, contact the office so that we may evaluate you as soon as possible. B. Complications are uncommon, but please contact us if you have any signs or symptoms of: 1. wound infection (fever higher than 102.5 degrees F, redness, separation of wound, drainage, or increasing pain from the incision) 2. blood clots in legs (pain, swelling, redness and warmth in legs) 3. urinary tract infection (fever higher than 102.5 degrees F, burning upon urination or increased frequency of urination) 4. nerve problems (inability to walk on your toes or heels, numbness, loss of bowel or bladder control) 5. any other symptoms that concern you C. Please call the office at if you have any concerns or questions about your operation or recovery. D. No smoking! Smoking drastically decreases the chance of a solid fusion. E. Do not take any anti-inflammatory medications (Indocin, Advil, Motrin, Aspirin, Naprosyn, etc.) as these may inhibit the chance of a solid fusion. Tylenol is okay to take for pain. MANAGING PAIN AFTER SPINAL SURGERY 1. Narcotic medication is intended for short-term use and will be provided for surgical pain. Surgical pain usually lasts for a period of 4-6 weeks. Narcotic medication includes Percocet, Vicodin, Darvocet, Tylenol #3 or Lortab. 2. Longer-term pain is more appropriately treated with non-narcotic medication such as Tylenol ES. 3. Muscle spasm is not appropriately treated with narcotics. Muscle relaxers such as Soma, Flexeril or Skelaxin can be used along with Tylenol ES. 4. Remember that we all live with some "aches and pains". This is not unusual or uncommon after an injury or as we get older. a. Back pain is expected and may include muscle spasms for 4 to 6 weeks after surgery. The pain should gradually improve. If the pain worsens for no apparent reason, please contact the office. b. Intermittent leg pain may also be experienced and should not be concerned about unless it worsens for no apparent reason. If so, please contact the office. 5. We will provide appropriate medication within the normal guidelines of their prescribed use. We will also be very cautious and aware of potential abuse and extended duration of patients' medication needs. a. Pain medications are for your comfort and to assist with sleep and rest so that the tissue can heal. They are not provided in order to return to normal activity and should not be used through the day. To do so or worsening pain at night can result from ongoing tissue damage and development of tolerance to the prescribed medicine. 6. Please allow 2-3 days to process refills. Prescriptions will not be mailed but must be picked up at the office. FOLLOW UP VISIT: Keep your scheduled follow-up appointment. Any questions, please call the office at .
== END 2024-12-17 10:57 | disposition home or self-care (01) ==
LOC: ASU 07:46 → 3E 12:24 → INTOOBSV 12:24

== ENCOUNTER 2024-12-20 10:05 | Inpatient (IN) ==
--- NOTE | 2024-12-20 10:28 | Emergency Department Note ---
Impression & Plan Fever, Postoperative back pain, Status post spinal surgery ED Provider Note NAME: MICHELA DAVIS AGE: 74 SEX: M : 1950 ARRIVES VIA: Walk-In INFORMANT: Patient ED PROVIDER(S): Tanner Crespo MD CHIEF COMPLAINT: Fever, back pain, status post back surgery on 12/14, referred. PLAN: Disposition: Admit MEDICAL DECISION MAKING: The patient is a pleasant 74-year-old gentleman with a past medical history of hypertension, hyperlipidemia, GERD, history of lumbosacral spondylosis with radiculopathy status post lumbar decompression and bilateral medial facetectomies and foraminotomies and posterior fusion who presents to the emergency department via walk-in, accompanied by his for evaluation of worsening intractable pain over the past 24 hours in the setting of his report of doing well following his discharge. Patient denies any falls. He reports he did have fever over the past 24 hours of 100.4. He reports mild productive cough. He denies nausea or vomiting. He reports he did move his bowels yesterday. He denies any urinary symptoms. Patient reports he contacted Dr. Yoder, his spine surgeon who recommended emergency department evaluation. On evaluation the patient is uncomfortable but no acute distress, afebrile blood pressure 200/80s in the setting of his discomfort and vital signs otherwise stable. He appears euvolemic to dry. Lungs with slight rhonchi of lower lung arriola and otherwise clear. Patient's incision site appears clean dry and intact without erythema warmth, tenderness or discharge at this time. EKG without overt acute ischemia. CXR with possible mild vascular congestion with suspected asymmetric interstitial opacity within the right perihilar region suspicious for possible pneumonia with per my personal preliminary review/interpretation given the patient's reported fever and cough. WBC 12.6 K with neutrophilia and slight left shift. H/H 9.1/28.0 slightly decreased from recent following surgery but approximate to prior. Platelets within normal limits. Chemistry without metabolic acidosis. Electrolytes and LFTs unremarkable. High styptic troponin 50.3, within normal limits. Procalcitonin is not elevated. UA with out convincing evidence of infection. Respiratory BioFire was negative. Blood cultures were obtained and empiric treatment initiated for CAP with ceftriaxone and doxycycline. Given the patient's fever and intractable pain patient does agree plan for admission for further management. Analgesia provided with IV APAP and morphine. Case was discussed with Dr. Yoder, orthopedic spine who will admit the patient for further management and pain control. Appreciate consultation and recommendations. Further management per admitting team. Triage Nursing notes reviewed and agree them. Prior/external medical records reviewed Vital Signs: reviewed Differential diagnosis: Viral syndrome, otitis, pharyngitis, pneumonia, influenza, meningitis, urinary tract infection, sepsis, bacteremia, as well as other pathologies. ER treatment provided: See below. Diagnostics interpreted by me: ECG: Normal sinus rhythm, 82 bpm, no ectopy, no overt ST ovation or depression, QTc 450, QRS 90. Cardiac Monitoring: An order for continuous cardiac monitoring was placed and demonstrated Normal sinus rhythm, 82 bpm, no ectopy Laboratory studies: See below Imaging studies: See below Consultation(s): Dr. Yoder, ortho-spine HPI: Per MDM. ROS: See above HPI for pertinent positives & negatives. A total of 10 systems reviewed and were otherwise negative. VITALS:See Below PHYSICAL EXAMINATION: GENERAL: Awake, alert, uncomfortable-appearing, in no distress HENT: Normocephalic, atraumatic. Oropharynx with dry mucous membranes and otherwise unremarkable. EYES: Normal conjunctiva. Sclera non-icteric. NECK: Supple. No nuchal rigidity. FROM. No JVD. RESPIRATORY: Slight rhonchi of lower lung arriola and otherwise clear. CARDIAC: Regular rate, normal rhythm. Extremities warm and well perfused. Pulses equal. ABDOMEN: Soft, non-distended. No tenderness to palpation. No rebound or guarding. No masses. MUSCULOSKELETAL: Chest examination reveals no tenderness. Lumbar incision site appears clean dry and intact without erythema warmth, tenderness or discharge at this time. No joint edema. LOWER EXTREMITIES: Calves are equal size bilaterally and non-tender. No edema. No discoloration. NEURO: Normal sensorium. No sensory or motor deficits noted. SKIN: No rash or jaundice noted. Tanner Crespo MD Past Med/Surg History Problem List (Updated 12/21/24 @ 00:59 by Tanner Crespo MD) Status post spinal surgery (Acute) Postoperative back pain (Acute) Back pain Fever (Acute) Lumbosacral spondylosis with radiculopathy Medical History Arthritis Chronic low back pain Diabetes Dyslipidemia Edema of both lower legs Occasional, takes PRN lasix approximately once/month Glaucoma (increased eye pressure) HTN (hypertension) Sleep apnea CPAP (compliant) Spinal stenosis Surgical History History of bilateral knee replacement x2 History of right hip replacement ~2022 Hx of appendectomy Hx of bilateral cataract extraction Hx of cholecystectomy Hx of colonoscopy Hx of hand surgery Social History Smoking Status: Former smoker Tobacco Type: Cigarettes Smoking End Date: 30 yrs ago; Second Hand Exposure: No; Do You Dip or Chew Tobacco: No; Tobacco Cessation Education Requested by Patient: No Hx Alcohol Use: No Hx Substance Use: No Preferred Language: Swazi Communication Ability: Effective Panel Instrument Repairer Required: No Beliefs That Will Affect Care: None Current Living Situation: Spouse Other Information That Helps Us Care for You: No Feels Safe at Home: Yes Safety Concerns: Feels Safe At This Time Assistive Devices: Glasses and Walker Allergies Allergies Allergy/AdvReac Type Severity Reaction Status Date / Time No Known Allergies Allergy Verified 12/14/24 07:57 Home Meds Home Medications Medication Instructions Recorded Confirmed ascorbic acid (vitamin C) 500 mg 500 mg PO DAILY 11/12/24 12/20/24 tablet (Vitamin C) aspirin 81 mg capsule 81 mg PO DAILY 11/12/24 12/20/24 furosemide 20 mg tablet 20 mg PO DAILY PRN Edema 11/12/24 12/20/24 gabapentin 300 mg capsule 900 mg PO HS PRN Pain 11/12/24 12/20/24 hydrochlorothiazide 12.5 mg tablet 12.5 mg PO QAM 11/12/24 12/20/24 latanoprost 0.005 % eye drops 1 drp ophthalmic (eye) PM 11/12/24 12/20/24 losartan 100 mg tablet 100 mg PO QAM 11/12/24 12/20/24 metformin 500 mg tablet 500 mg PO QPM 11/12/24 12/20/24 metoprolol tartrate 25 mg tablet 25 mg PO BID 11/12/24 12/20/24 multivitamin 1 tab PO QAM 11/12/24 12/20/24 pravastatin 80 mg tablet 80 mg PO HS 11/12/24 12/20/24 semaglutide 2 mg/dose (8 mg/3 mL) 2 mg subcut WK 11/12/24 12/20/24 subcutaneous pen injector (Ozempic) topiramate 25 mg tablet 25 mg PO QAM PRN Pain 11/12/24 12/20/24 timolol maleate 0.5 % eye drops 1 drp OPB DAILY 12/20/24 12/20/24 Previous Rx's Medication Instructions Recorded oxycodone 5 mg tablet 5 mg PO Q6H PRN pain #30 tabs 12/15/24 tramadol 50 mg tablet 50 mg PO Q6H PRN pain, moderate 12/15/24 #30 tabs Results & Data (ED) Vital Signs Vital Signs - 24 hr 12/20/24 10:07 12/20/24 11:02 12/20/24 11:05 Temperature 37.2 C Temperature Source Oral Pulse Rate 83 79 Pulse Rate from SpO2 Sensor Respiratory Rate 18 Blood Pressure 207/87 H 197/100 H Blood Pressure Mean 127 168 Pulse Oximetry 97 96 Oxygen Delivery Method Room Air Room Air Sepsis New/Unexplained Change in Mental Status No Sepsis Action Taken by Nursing No Action Required 12/20/24 11:09 12/20/24 11:21 12/20/24 11:22 Temperature Temperature Source Pulse Rate 81 84 85 Pulse Rate from SpO2 Sensor 81 83 Respiratory Rate 24 25 H Blood Pressure Blood Pressure Mean Pulse Oximetry 97 98 Oxygen Delivery Method Sepsis New/Unexplained Change in Mental Status Sepsis Action Taken by Nursing 12/20/24 11:34 12/20/24 11:54 12/20/24 12:00 Temperature Temperature Source Pulse Rate 76 79 Pulse Rate from SpO2 Sensor 76 80 Respiratory Rate 17 25 H Blood Pressure 195/92 H Blood Pressure Mean 146 Pulse Oximetry 95 95 Oxygen Delivery Method Sepsis New/Unexplained Change in Mental Status Sepsis Action Taken by Nursing 12/20/24 12:00 12/20/24 12:00 12/20/24 12:00 Temperature Temperature Source Pulse Rate Pulse Rate from SpO2 Sensor Respiratory Rate Blood Pressure 177/75 H 177/75 H 177/75 H Blood Pressure Mean 97 97 97 Pulse Oximetry Oxygen Delivery Method Sepsis New/Unexplained Change in Mental Status Sepsis Action Taken by Nursing 12/20/24 12:12 Temperature Temperature Source Pulse Rate 78 Pulse Rate from SpO2 Sensor 78 Respiratory Rate 19 Blood Pressure Blood Pressure Mean Pulse Oximetry 97 Oxygen Delivery Method Sepsis New/Unexplained Change in Mental Status Sepsis Action Taken by Nursing Laboratory Data Attestation: I reviewed the patient's lab results. 12/20/24 10:50 12/20/24 10:50 Lab Results 12/20/24 12/20/24 12/20/24 Range/Units 10:50 11:00 11:21 WBC 12.60 H (4.8-10.8) K/ul RBC 3.03 L (4.70-6.10) M/uL Hgb 9.1 L (14.0-18.0) g/dl POC Hgb 9.5 L (14.0-18.0) g/dl Hct 28.0 L (42.0-52.0) % POC Hct 28 L (42-52) % MCV 92.4 (80.0-100.0) fL MCH 30.0 (25.0-34.0) pg MCHC 32.5 (32.0-36.0) g/dL RDW Std Deviation 45.4 (36.4-46.3) fL RDW Coeff of Gwen 13.4 (11.5-14.5) % Plt Count 211 (130-400) K/uL MPV 10.2 (9.4-12.4) fL Immature Gran % (Auto) 2.8 % Neut % (Auto) 65.9 % Lymph % (Auto) 14.0 % Mcintosh % (Auto) 16.0 % Eos % (Auto) 1.0 % Baso % (Auto) 0.3 % Neut # (Auto) 8.31 H (1.40-6.50) K/uL Lymph # (Auto) 1.77 (1.20-3.40) K/uL Mcintosh # (Auto) 2.01 H (0.11-0.59) K/uL Eos # (Auto) 0.12 (0.00-0.50) K/uL Baso # (Auto) 0.04 (0.00-0.20) K/uL Immature Gran # (Auto) 0.35 H (0.01-0.20) K/uL PT 11.3 (9.0-12.0) Seconds INR 1.0 (0.9-1.1) POC Sodium 131 L (135-144) mmol/L Sodium 132 L (136-145) mmol/L POC Potassium 3.9 (3.3-5.0) mmol/L Potassium 3.9 (3.5-5.1) mmol/L POC Chloride 92 L (101-112) mmol/L Chloride 94 L (98-107) mmol/L Carbon Dioxide 30 (21-32) mmol/L POC Total CO2 26 (24-31) mmol/L Anion Gap 8 (3-11) POC Anion Gap 18.0 (16-25) mmol/L POC BUN 13 (7-18) mg/dl BUN 15 (6-23) mg/dl Creatinine 0.76 (0.6-1.4) mg/dl POC Creatinine 0.8 (0.6-1.3) mg/dl Est Cr Clr Drug Dosing 125.6 ml/min eGFR 94.91 BUN/Creatinine Ratio 19.7 (10-20) Glucose 172 H (70-99(Fasting)) mg/dl POC Glucose (other) 167 H (70-99) mg/dl Lactate 2.0 (0.4-2.0) mmol/L Calcium 8.7 (8.6-10.3) mg/dl POC Ioniz Calcium Jyoti 1.15 (1.12-1.32) mmol/l Total Bilirubin 0.9 (0.2-1.0) mg/dl AST 23 (13-39) U/L ALT 16 (7-52) U/L Alkaline Phosphatase 41 (34-104) U/L Troponin I High Sens 15.3 (0-20) pg/ml Total Protein 7.0 (6.0-8.3) gm/dl Albumin 3.7 (3.4-5.0) gm/dl Globulin 3.3 (2.5-4.0) gm/dl Albumin/Globulin Ratio 1.1 (0.9-2) Lipase 7 L (11-82) U/L Procalcitonin 0.03 (0-0.5) ng/ml Urine Color Dark Yellow Urine Appearance Clear (Clear) Urine pH 6.0 (4.5-7.5) Ur Specific [place] 1.025 (1.000-1.030) Urine Protein 1+ H (Negative) Urine Glucose (UA) Negative (Negative) Urine Ketones Trace H (Negative) Urine Blood Trace H (Negative) Urine Nitrite Negative (Negative) Urine Bilirubin Negative (Negative) Urine Urobilinogen Positive H (Negative) Ur Leukocyte Esterase Trace H (Negative) Urine WBC (Auto) 0-5 (0-5) /hpf Urine RBC (Auto) 3-5 H (0-2) /hpf U Hyaline Cast (Auto) 0-2 (0-2) /lpf U Epithel Cells (Auto) 0-2 (0-2) /hpf Urine Bacteria (Auto) None Seen (None Seen) Urine Comment Adenovirus (PCR) Not Detected (NotDetected) B. pertussis DNA (PCR) Not Detected (NotDetected) B.parapertussis DNA PCR Not Detected (NotDetected) C. pneumoniae DNA (PCR) Not Detected (NotDetected) Coronavirus OC43 (PCR) Not Detected (NotDetected) Coronavirus HKU1 (PCR) Not Detected (NotDetected) Coronavirus 229E (PCR) Not Detected (NotDetected) SARS-CoV-2 (PCR) Not Detected (NotDetected) Coronavirus NL63 (PCR) Not Detected (NotDetected) Human Metapneumovir PCR Not Detected (NotDetected) Influenza Type A (PCR) Not Detected (NotDetected) Influenza Type B (PCR) Not Detected (NotDetected) M. pneumoniae (PCR) Not Detected (NotDetected) Parainfluenza 1 (PCR) Not Detected (NotDetected) Parainfluenza 2 (PCR) Not Detected (NotDetected) Parainfluenza 3 (PCR) Not Detected (NotDetected) Parainfluenza 4 (PCR) Not Detected (NotDetected) RSV (PCR) Not Detected (NotDetected) Entero/Rhino (PCR) Not Detected (NotDetected) Administered Medications Cyclobenzaprine HCl (Cyclobenzaprine Hcl 10 Mg Tab) 10 mg PO Q8H PRN PRN Reason: Muscle Spasm Stop: 01/19/25 14:38 Last Admin: 12/20/24 17:00 Dose: 10 mg Documented By: WILL Hydromorphone HCl (Hydromorphone Inj 0.5 Mg/0.5 Ml Syr) 0.5 mg IV Q3H PRN PRN Reason: MOD pain (scale 4-6) & Pre PT Stop: 01/03/25 14:38 Last Admin: 12/20/24 15:32 Dose: 0.5 mg Documented By: WILL Lactated Ringer's (Lr) 1,000 mls @ 75 mls/hr IV .[id number] ELLIOTT Stop: 12/21/24 08:00 Last Admin: 12/20/24 16:11 Dose: 75 mls/hr Documented By: WILL Acetaminophen (Ofirmev) 1,000 mg in 100 mls @ 400 mls/hr IV Q8H PRN PRN Reason: Pain Rating 1-3 & Pre PT Stop: 12/21/24 14:39 Last Infusion: 12/20/24 21:00 Dose: Infused Documented By: Admin: 12/20/24 20:26 Dose: 400 mls/hr Documented By: LISA Cefepime HCl (Maxipime 2000mg) 2,000 mg in 20 mls @ 5 mls/min IV Q8H [facility]; Protocol Stop: 12/25/24 15:59 Last Admin: 12/20/24 16:11 Dose: 5 mls/min Documented By: WILL Doxycycline Hyclate 100 mg/ (Dextrose) 100 mls @ 50 mls/hr IV Q12H [facility] Stop: 12/25/24 20:59 Last Infusion: 12/20/24 22:25 Dose: Infused Documented By: Admin: 12/20/24 20:23 Dose: 50 mls/hr Documented By: LISA Insulin Aspart (Insulin Aspart Per Unit Charge) 0 units SC ACHS [facility] Stop: 01/19/25 16:29 Last Admin: 12/20/24 21:47 Dose: Not Given Documented By: LISA Co-signed By: ava Admin: 12/20/24 17:48 Dose: 4 units Documented By: WILL Co-signed By: CHRISTAL Ketorolac Tromethamine (Ketorolac Tromethamine 15 Mg/Ml Vial) 15 mg IV Q6H PRN PRN Reason: Pain Stop: 12/25/24 14:38 Last Admin: 12/20/24 15:08 Dose: 15 mg Documented By: WILL Latanoprost (Latanoprost 0.005% Op Soln 2.5 Ml Btl) 1 drops OP PM ELLIOTT Stop: 01/19/25 20:59 Last Admin: 12/20/24 20:22 Dose: 1 drops Documented By: LISA Metoprolol Tartrate (Metoprolol Tartrate 25 Mg Tab) 25 mg PO BID [facility] Stop: 01/19/25 20:59 Last Admin: 12/20/24 20:22 Dose: 25 mg Documented By: LISA Oxycodone HCl (Oxycodone Hcl Ir 5 Mg Tab (Immediate Release)) 5 - 10 mg PO Q4H PRN PRN Reason: mod to severe pain Stop: 01/03/25 14:38 Last Admin: 12/20/24 15:08 Dose: 10 mg Documented By: WILL Pravastatin Sodium (Pravastatin Sod 40 Mg Tab) 80 mg PO HS ELLIOTT Stop: 01/19/25 20:59 Last Admin: 12/20/24 20:22 Dose: 80 mg Documented By: LISA Discontinued Medications Sodium Chloride (Nss) 500 mls @ 125 mls/hr IV .Q4H ELLIOTT Stop: 12/20/24 15:29 Last Infusion: 12/20/24 16:03 Dose: Infused Documented By: Admin: 12/20/24 11:30 Dose: 125 mls/hr Documented By: ML Acetaminophen (Ofirmev) 1,000 mg in 100 mls @ 400 mls/hr IV NOW STA Stop: 12/20/24 11:38 Last Infusion: 12/20/24 12:35 Dose: Infused Documented By: Admin: 12/20/24 11:28 Dose: 400 mls/hr Documented By: ML Ceftriaxone Sodium (Rocephin) 2,000 mg in 50 mls @ 100 mls/hr IV NOW STA Stop: 12/20/24 12:44 Last Infusion: 12/20/24 13:56 Dose: Infused Documented By: Admin: 12/20/24 12:37 Dose: 100 mls/hr Documented By: ANT Doxycycline Hyclate 100 mg/ (Dextrose) 100 mls @ 50 mls/hr IV NOW STA Stop: 12/20/24 14:14 Last Infusion: 12/20/24 16:11 Dose: Infused Documented By: Admin: 12/20/24 13:26 Dose: 50 mls/hr Documented By: ML Morphine Sulfate (Morphine Sulfate 10 Mg/Ml Carp/Vial) 6 mg IV NOW STA Stop: 12/20/24 11:25 Last Admin: 12/20/24 11:28 Dose: 6 mg Documented By: ML Imaging Data Radiologist's Impression: Chest X-Ray 12/20/24 10:26 Clinical History: Trauma Technique: A frontal view of the chest was obtained Comparison is made to the prior examination dated 11/19/2024 Findings: There are no confluent pulmonary infiltrates. The heart size is at the. No pleural effusion or pneumothorax is seen. There is suspected mild pulmonary vascular congestion No fracture is noted. No foreign body is seen Impression: Suspected mild pulmonary vascular congestion Electronically signed by Casey Licea 12-20-2024 11:12 AM Discharge Plan Visit Data Chief Complaint: Back Injury/Pain Stated Complaint: BACK FUSION DECEMBER 14,FEVER,NO ABILITY TO GET UP ED Provider: Tanner Crespo Discharge Problem: Fever, Postoperative back pain, Status post spinal surgery Patient Disposition: Admitted As Inpatient Condition: Fair Discharge Instructions Interventions: ED Discharge Assessment Last Done: 12/20/24 14:12 Discharge Problem: Fever Qualifiers: Fever type: unspecified Qualified Code(s): R50.9 - Fever, unspecified
--- NOTE | 2024-12-20 11:13 | XRay Report ---
Clinical History: Trauma Technique: A frontal view of the chest was obtained Comparison is made to the prior examination dated 11/19/2024 Findings: There are no confluent pulmonary infiltrates. The heart size is at the. No pleural effusion or pneumothorax is seen. There is suspected mild pulmonary vascular congestion No fracture is noted. No foreign body is seen Impression: Suspected mild pulmonary vascular congestion Electronically signed by Casey Licea 12-20-2024 11:12 AM
[2024-12-20 11:15] LABS: Hematocrit (blood only) 28.0 % (42.0-52.0); Hemoglobin 9.1 g/dl (14.0-18.0); Immature Granulocytes # (auto) 0.35 K/uL (0.01-0.20); Immature Granulocytes % (auto) 2.8 %; Mean Corpuscular Hemoglobin 30.0 pg (25.0-34.0); Mean Corpuscular Volume 92.4 fL (80.0-100.0); Platelet Count 211 K/uL (130-400); RDW Standard Deviation 45.4 fL (36.4-46.3); Red Blood Count 3.03 M/uL (4.70-6.10); White Blood Count 12.60 K/ul (4.8-10.8)
[2024-12-20 11:24] LABS: Appearance Urine Clear (Clear); Bacteria Urine Automated None Seen (None Seen); Cast Urine Automated 0-2 /lpf (0-2); Epithelial Cell Urine Auto 0-2 /hpf (0-2); Glucose Urine UA Negative (Negative); WBC Urine Automated 0-5 /hpf (0-5)
[2024-12-20] MEDS: MoRPHine SULFATE 10 MG/ML CARP/VIAL IV STA (11:28)
[2024-12-20] MEDS: ACETAMINOPHEN 1,000 MG/100 ML VIAL IV STA (11:28)
[2024-12-20] MEDS: SODIUM CHLORIDE 0.9% 500 ML IV SCH (11:30)
[2024-12-20 11:36] LABS: INR 1.0 (0.9-1.1); Prothrombin Time 11.3 Seconds (9.0-12.0)
[2024-12-20 11:41] LABS: Alanine Aminotransferase 16.0 U/L (7-52); Albumin Globulin Ratio 1.1 (0.9-2); Alkaline Phosphatase 41.0 U/L (34-104); Anion Gap 8.0 (3-11); Bilirubin,Total 0.9 mg/dl (0.2-1.0); Blood Urea Nitrogen 15.0 mg/dl (6-23); Calcium 8.7 mg/dl (8.6-10.3); Carbon Dioxide 30.0 mmol/L (21-32); Chloride 94.0 mmol/L (98-107); Creatinine Clr Calc Pharmacy 125.6 ml/min; Globulin 3.3 gm/dl (2.5-4.0); Glucose 172.0 mg/dl (70-99(Fasting)); Lipase 7.0 U/L (11-82); Potassium 3.9 mmol/L (3.5-5.1); Sodium 132.0 mmol/L (136-145); Total Protein 7.0 gm/dl (6.0-8.3)
[2024-12-20 12:24] LABS: Chlamydia pneumoniae PCR Not Detected (NotDetected); Coronavirus 229E PCR Not Detected (NotDetected); Coronavirus CoV-2 (COVID19)PCR Not Detected (NotDetected); Coronavirus HKU1 PCR Not Detected (NotDetected); Coronavirus NL63 PCR Not Detected (NotDetected); Coronavirus OC43PCR Not Detected (NotDetected); Human Metapneumovirus PCR Not Detected (NotDetected); Parainfluenza Virus 1 PCR Not Detected (NotDetected); Parainfluenza Virus 2 PCR Not Detected (NotDetected); Parainfluenza Virus 3 PCR Not Detected (NotDetected); Parainfluenza Virus 4 PCR Not Detected (NotDetected); Respiratory Syncytial VirusPCR Not Detected (NotDetected); Rhinovirus/Enterovirus PCR Not Detected (NotDetected)
[2024-12-20] MEDS: cefTRIAXone SODIUM 2,000 MG/50 ML BAG IV STA (12:37)
[2024-12-20] MEDS: DOXYCYCLINE HYCLATE 100 MG in DEXTROSE 5% MINI-B 100 ML IV STA (13:26)
[2024-12-20] MEDS ORDERED: ONDANSETRON INJ 2 MG/ML 2 ML VIAL IV PRN (14:39)
[2024-12-20] MEDS ORDERED: PHARMACY GLYCEMIC MGMT CONSULT PRN (14:39)
[2024-12-20] MEDS ORDERED: METOCLOPRAMIDE HCL INJ 5 MG/ML 2 ML VIAL IV PRN (14:39)
[2024-12-20] MEDS ORDERED: LORazepam 0.5 MG TAB PO PRN (14:39)
[2024-12-20] MEDS ORDERED: TOPIRAMATE 25 MG TAB PO PRN (14:39)
[2024-12-20] MEDS ORDERED: PROMETHAZINE 12.5 MG/50.5 ML BAG IV PRN (14:39)
[2024-12-20] MEDS ORDERED: NALOXONE HCL 0.4 MG/1 ML VIAL/CARP IV PRN (14:39)
[2024-12-20] MEDS ORDERED: ONDANSETRON 4 MG OD TAB PO PRN (14:39)
[2024-12-20] MEDS ORDERED: GLUCOSE 40% GEL 15 GM TUBE PO PRN (15:00)
[2024-12-20] MEDS ORDERED: DEXTROSE 50% 50 ML SYRINGE IV PRN (15:00)
[2024-12-20] MEDS ORDERED: GLUCAGON FOR INJ 1 MG VIAL SQ PRN (15:00)
[2024-12-20] MEDS ORDERED: GLUCOSE 10 TAB/TUBE PO PRN (15:00)
[2024-12-20] MEDS ORDERED: CARBOHYDRATES FOR HYPOGLYCEMIA PO PRN (15:00)
[2024-12-20] MEDS: KETOROLAC TROMETHAMINE 15 MG/ML VIAL IV PRN (15:08)
--- NOTE | 2024-12-20 15:09 | Hospitalist Consultation ---
"Date of Consultation December 20, 2024 Assessment & Plan (1) Fever: (2) Back pain: (3) Diabetes: (4) HTN (hypertension): Plan Fabrice is a 74-year-old male with a past medical history of hypertension and diabetes and recent back surgery with Dr. Yoder who presents to the hospital with worsening back pain fevers and chills. Hospital medicine consulted for medical management #Febrile illness | recent back surgery/acute back pain Recent back surgery with Dr. Yoder 12/14 Source: Suspected pneumonia based on CXR, however stable on room air minimal symptoms. Could be atelectasis as he has been very sedentary last 3 days UA without signs of infection, no skin changes on lower back wound, BioFire negative. With mild leukocytosis Blood cultures pending Sputum culture ordered Continue broad-spectrum antibiotics with cefepime and doxycycline #Hypertension | HLD BPs elevated likely due to pain Continue losartan and metoprolol tartrate twice daily Hold HCTZ due to hyponatremia- monitor AM labs and PO intake Continue statin and ASA 81mg #Hyponatremia Sodium mildly low at 132 down from baseline of 135. Takes HCTZ at home and has been having low-grade fevers, likely poor p.o. intake Hold HCTZ Continue gentle IV fluids Follow BMP in the morning #Anemia Hemoglobin low at 9.1 down from 10.9 on the day of discharge. No evidence of bleeding from anywhere, is hemodynamically stable. Likely due to blood loss from previous back surgery Follow CBC #Diabetes mellitus type II Hold Ozempic and metformin Pharmacy glycemic consult per primary team Thank you for allowing us to participate in the care of this patient, please reach out with any questions or concerns. Hospital Medicine will continue to follow. Supervising Physician Co-Signing Physician Notes PA Supervision Note: I personally saw and examined the patient. I verified all adkins points and agree with SUJEY Winchester with the following exceptions and/or additions: S-patient presents with severe lower back pain that worsened 1 day after returning home from the hospital after having a lumbar discectomy and fusion. He reports he has been unable to get out of this chair and ambulate for the last 3 days due to pain. Denies abdominal pain nausea diarrhea or constipation. No chest pain or shortness of breath, no no cough. He has had low-grade fevers to 100.2. History and ROS otherwise reviewed as above O- Vitals reviewed Gen: AAOx3, NAD, obese HEENT: Anicteric sclerae, EOMI CV: RRR no mgr nl S1S2 Pulm: CTAB no wcr, diminished breath sounds at the bases Abd: +BS soft NT ND no masses or hernias Ext: No edema, DEMETRA hose in place Skin: No rashes, warm/dry, lower back with incision with Steri-Strips, no erythema or drainage Neuro: Able to move legs and 5 out of 5 strength in upper extremities CBC, BMP, LFTs, troponin, UA, respiratory bio fire, CXR image personally revi ewignacio [id number] male with history of HTN, HLD, DM 2, here with acute intractable lower back pain 1 week postop from lumbar discectomy and fusion with low-grade fevers Suspect likely atelectasis but could be early developing pneumonia - Cover with broad-spectrum antibiotics for hospital-acquired pneumonia/gram- negative pneumonia and cover for atypicals and MRSA with doxycycline for now, follow blood cultures and sputum culture if possible - Encouraged incentive spirometry - Pain control as per spine surgery Hospitalist service will follow along History of Present Illness Reason for Consultation: medical management Requesting Physician: Dr. Yoder Attending Physician: Ken Yoder, History of Present Illness Fabrice is a 74-year-old male with a past medical history of hypertension and diabetes and recent back surgery with Dr. Yoder who presents to the hospital with worsening back pain fevers and chills. reports was doing okay when he got discharged on , transferring independently on Saturday then Saturday evening could not get out of his lift chair and needed assistance. This is the time when he had fevers he treated this with a cold pack and Tylenol. He denies worsening cough, productive cough, congestion. no urinary symptoms does report some skin irritation in the groin area. Denies chills or diaphoresis at home. Main concern for coming in today was pain control, reports that he was told he was not taking enough pain medication. Reports he has been moving his bowels, appetite has been maintained. Allergies Allergy/AdvReac Type Severity Reaction Status Date / Time No Known Allergies Allergy Verified 12/14/24 07:57 Home Medications Medication Instructions Recorded Confirmed Type ascorbic acid (vitamin C) 500 mg 500 mg PO DAILY 11/12/24 12/20/24 History tablet (Vitamin C) aspirin 81 mg capsule 81 mg PO DAILY 11/12/24 12/20/24 History furosemide 20 mg tablet 20 mg PO DAILY PRN Edema 11/12/24 12/20/24 History gabapentin 300 mg capsule 900 mg PO HS PRN Pain 11/12/24 12/20/24 History hydrochlorothiazide 12.5 mg tablet 12.5 mg PO QAM 11/12/24 12/20/24 History latanoprost 0.005 % eye drops 1 drp ophthalmic (eye) PM 11/12/24 12/20/24 History losartan 100 mg tablet 100 mg PO QAM 11/12/24 12/20/24 History metformin 500 mg tablet 500 mg PO QPM 11/12/24 12/20/24 History metoprolol tartrate 25 mg tablet 25 mg PO BID 11/12/24 12/20/24 History multivitamin 1 tab PO QAM 11/12/24 12/20/24 History pravastatin 80 mg tablet 80 mg PO HS 11/12/24 12/20/24 History semaglutide 2 mg/dose (8 mg/3 mL) 2 mg subcut WK 11/12/24 12/20/24 History subcutaneous pen injector (Ozempic) topiramate 25 mg tablet 25 mg PO QAM PRN Pain 11/12/24 12/20/24 History oxycodone 5 mg tablet 5 mg PO Q6H PRN pain #30 tabs 12/15/24 12/20/24 Rx tramadol 50 mg tablet 50 mg PO Q6H PRN pain, moderate 12/15/24 12/20/24 Rx #30 tabs timolol maleate 0.5 % eye drops 1 drp OPB DAILY 12/20/24 12/20/24 History Patient History Medical History Arthritis Chronic low back pain Diabetes Dyslipidemia Edema of both lower legs Occasional, takes PRN lasix approximately once/month Glaucoma (increased eye pressure) HTN (hypertension) Sleep apnea CPAP (compliant) Spinal stenosis Surgical History History of bilateral knee replacement x2 History of right hip replacement ~2022 Hx of appendectomy Hx of bilateral cataract extraction Hx of cholecystectomy Hx of colonoscopy Hx of hand surgery Social History Smoking Status: Former smoker Tobacco Type: Cigarettes Smoking End Date: 30 yrs ago; Second Hand Exposure: No; Do You Dip or Chew Tobacco: No; Tobacco Cessation Education Requested by Patient: No Hx Alcohol Use: No Hx Substance Use: No Preferred Language: Greenlandic Communication Ability: Effective Supervisor Porcelain Department Required: No Beliefs That Will Affect Care: None Current Living Situation: Spouse Other Information That Helps Us Care for You: No Feels Safe at Home: Yes Safety Concerns: Feels Safe At This Time Assistive Devices: Glasses and Walker Review of Systems Review of Systems: All systems reviewed & are unremarkable except as noted in Subjective Physical Exam Physical Exam: General: NAD, VS as above Resp: normal respiratory effort, On room air, coarse on the bases, no wheezing CV: RRR, no murmur, Abd: normal bowel sounds, non tender, Soft back: Incision with Steri-Strips covering, no erythema or purulent drainage. Extremities: Moves all extremities, no edema, negative Homans' sign bilaterally Neuro: A&O x3, Skin: intact, no lesions noted. groin area where patient is experiencing irritation is not erythematous or with signs of infection Results & Data Results & Data Vital Signs (Past 12 Hours) Vital Signs Temp Pulse Pulse Resp BP BP Pulse Ox 12/20/24 14:55 97.5 F L 82 18 172/73 H 96 12/20/24 14:12 73 20 97 12/20/24 14:03 75 22 96 12/20/24 14:00 147/92 H 12/20/24 14:00 147/92 H 12/20/24 14:00 147/92 H 12/20/24 13:54 69 16 95 12/20/24 13:51 72 22 95 12/20/24 13:45 69 19 95 12/20/24 13:36 81 21 169/80 H 96 12/20/24 13:27 71 23 95 12/20/24 13:15 70 19 95 12/20/24 13:00 75 20 12/20/24 13:00 160/82 H 12/20/24 13:00 160/82 H 12/20/24 13:00 160/82 H 12/20/24 12:40 74 14 150/78 H 92 12/20/24 12:12 78 19 97 12/20/24 12:00 177/75 H 12/20/24 12:00 177/75 H 12/20/24 12:00 177/75 H 12/20/24 12:00 79 25 H 95 12/20/24 11:54 76 17 95 12/20/24 11:34 195/92 H 12/20/24 11:22 85 12/20/24 11:21 84 25 H 98 12/20/24 11:09 81 24 97 12/20/24 11:05 197/100 H 12/20/24 11:02 79 96 12/20/24 10:07 99.0 F 83 18 207/87 H 97 O2 Del Method 12/20/24 14:55 Room Air 12/20/24 14:12 Laboratory Results CBC and chemistry reviewed lactate reviewed Lipase review Diagnostic Findings chest x-ray reviewed PG Care Time/CCT Total # of Minutes Spent Total Time Spent with Patient: Total time spent is greater than 50% in coordination of care (as documented) at patient's floor/unit and/or counseling patient: Coding Level of Care Code 96469 IN/OBS CONSULT LVL 4,60M Diagnoses Fever R50.9 Back pain M54.9 Diabetes E11.9 HTN (hypertension) I10"
--- NOTE | 2024-12-20 15:13 | Pharmacy Report ---
Pharmacy Glycemic Short Note 2 - Date of Service December 20, 2024 - Glycemic Short BSG Results (Last 24 hours): 12/20/24 12/20/24 10:50 11:21 Glucose 172 H POC Glucose (other) 167 H OUTPATIENT ANTIDIABETIC REGIMEN: * metformin 500mg po QPM * semaglutide 2mg SQ weekly HbA1c: 6.8% on 11/19/24 ASSESSMENT: * Fabrice is a 74 year old male who was admitted today for intractable back pain following back surgery on 12/14/24. Pharmacy has been consulted for glycemic management while he is admitted. * BSG on arrival was 167mg/dL. Will not start basal insulin at this time but will start a weight based bolus insulin regimen with a stress between 1 and 2 (using adjusted body weight). PLAN FOR INPATIENT GLYCEMIC CONTROL: * Hold outpatient diabetes medications * Basal insulin * none today but will reassess need with additional BSG readings * Bolus insulin * NovoLog per scale ACHS or Q6hrs while NPO * Goal Range: Low 110 mg/dL - High 140 mg/dL * Correction Factor: 30 mg/dL/unit * Nutritional / Prandial insulin per carb ratio of 1 unit per 10 grams CHO consumed
[2024-12-20] MEDS: HYDROmorphone INJ 0.5 MG/0.5 ML SYR IV PRN (15:32)
[2024-12-20] MEDS: CEFEPIME 2000MG 2,000 MG/20 ML SYR IV SCH (16:11)
[2024-12-20] MEDS: LACTATED RINGER'S 1,000 ML IV SCH (16:11)
[2024-12-20] MEDS: CYCLOBENZAPRINE HCL 10 MG TAB PO PRN (17:00)
--- NOTE | 2024-12-20 17:27 | History & Physical Report ---
Date of Service December 20, 2024 Assessment & Plan (1) Lumbosacral spondylosis with radiculopathy: Plan: At this time we will continue with pain medications. I will initiate physical therapy tomorrow. Will observe his progress over the next 48 hours and determine if he is safe to return home versus rehab. Admission and Anticipated Discharge Date Admission Date: December 20, 2024 History of Present Illness Chief Complaint: Postoperative back pain Primary Care Provider: Olive Najera DO This is a 74-year-old male status post multilevel lumbar decompression fusion. He was doing well at home postop day 5 and 6 when he began experiencing severe back pain. Unfortunately pain medication was not helpful. He denies any leg pain numbness or tingling. He is more comfortable now that he has been in the hospital and had some pain medications. Bowels have been working. Denies any nausea or vomiting. Allergies Allergy/AdvReac Type Severity Reaction Status Date / Time No Known Allergies Allergy Verified 12/14/24 07:57 Home Medications Medication Instructions Recorded Confirmed Type ascorbic acid (vitamin C) 500 mg 500 mg PO DAILY 11/12/24 12/20/24 History tablet (Vitamin C) aspirin 81 mg capsule 81 mg PO DAILY 11/12/24 12/20/24 History furosemide 20 mg tablet 20 mg PO DAILY PRN Edema 11/12/24 12/20/24 History gabapentin 300 mg capsule 900 mg PO HS PRN Pain 11/12/24 12/20/24 History hydrochlorothiazide 12.5 mg tablet 12.5 mg PO QAM 11/12/24 12/20/24 History latanoprost 0.005 % eye drops 1 drp ophthalmic (eye) PM 11/12/24 12/20/24 History losartan 100 mg tablet 100 mg PO QAM 11/12/24 12/20/24 History metformin 500 mg tablet 500 mg PO QPM 11/12/24 12/20/24 History metoprolol tartrate 25 mg tablet 25 mg PO BID 11/12/24 12/20/24 History multivitamin 1 tab PO QAM 11/12/24 12/20/24 History pravastatin 80 mg tablet 80 mg PO HS 11/12/24 12/20/24 History semaglutide 2 mg/dose (8 mg/3 mL) 2 mg subcut WK 11/12/24 12/20/24 History subcutaneous pen injector (Ozempic) topiramate 25 mg tablet 25 mg PO QAM PRN Pain 11/12/24 12/20/24 History oxycodone 5 mg tablet 5 mg PO Q6H PRN pain #30 tabs 12/15/24 12/20/24 Rx tramadol 50 mg tablet 50 mg PO Q6H PRN pain, moderate 12/15/24 12/20/24 Rx #30 tabs timolol maleate 0.5 % eye drops 1 drp OPB DAILY 12/20/24 12/20/24 History Past Med/Surg History Problem List (Updated 12/20/24 @ 15:41 by Marlena Winchester PA-C) Fever Lumbosacral spondylosis with radiculopathy Medical History Arthritis Chronic low back pain Diabetes Dyslipidemia Edema of both lower legs Occasional, takes PRN lasix approximately once/month Glaucoma (increased eye pressure) HTN (hypertension) Sleep apnea CPAP (compliant) Spinal stenosis Surgical History History of bilateral knee replacement x2 History of right hip replacement ~2022 Hx of appendectomy Hx of bilateral cataract extraction Hx of cholecystectomy Hx of colonoscopy Hx of hand surgery Social History Smoking Status: Former smoker Tobacco Type: Cigarettes Smoking End Date: 30 yrs ago; Second Hand Exposure: No; Do You Dip or Chew Tobacco: No; Tobacco Cessation Education Requested by Patient: No Hx Alcohol Use: No Hx Substance Use: No Preferred Language: Hungarian Communication Ability: Effective Electronics System Mechanic Required: No Beliefs That Will Affect Care: None Current Living Situation: Spouse Other Information That Helps Us Care for You: No Feels Safe at Home: Yes Safety Concerns: Feels Safe At This Time Assistive Devices: Glasses and Walker Physical Exam Physical Exam: On exam patient is in the bed. He sitting up. He is comfortable. Dissection strength testing lower extremities. Sensory symmetric and intact. Results & Data Results & Data Vital Signs (Past 12 Hours) Vital Signs Temp Pulse Pulse Resp BP BP Pulse Ox 12/20/24 14:55 36.4 C L 82 18 172/73 H 96 12/20/24 14:12 73 20 97 12/20/24 14:03 75 22 96 12/20/24 14:00 147/92 H 12/20/24 14:00 147/92 H 12/20/24 14:00 147/92 H 12/20/24 13:54 69 16 95 12/20/24 13:51 72 22 95 12/20/24 13:45 69 19 95 12/20/24 13:36 81 21 169/80 H 96 12/20/24 13:27 71 23 95 12/20/24 13:15 70 19 95 12/20/24 13:00 75 20 12/20/24 13:00 160/82 H 12/20/24 13:00 160/82 H 12/20/24 13:00 160/82 H 12/20/24 12:40 74 14 150/78 H 92 12/20/24 12:12 78 19 97 12/20/24 12:00 177/75 H 12/20/24 12:00 177/75 H 12/20/24 12:00 177/75 H 12/20/24 12:00 79 25 H 95 12/20/24 11:54 76 17 95 12/20/24 11:34 195/92 H 12/20/24 11:22 85 12/20/24 11:21 84 25 H 98 12/20/24 11:09 81 24 97 12/20/24 11:05 197/100 H 12/20/24 11:02 79 96 12/20/24 10:07 37.2 C 83 18 207/87 H 97 O2 Del Method 12/20/24 14:55 Room Air 12/20/24 14:12 12/20/24 14:03 12/20/24 14:00 12/20/24 14:00 12/20/24 14:00 12/20/24 13:54 12/20/24 13:51 12/20/24 13:45 12/20/24 13:36 12/20/24 13:27 12/20/24 13:15 12/20/24 13:00 12/20/24 13:00 12/20/24 13:00 12/20/24 13:00 12/20/24 12:40 Room Air 12/20/24 12:12 12/20/24 12:00 12/20/24 12:00 12/20/24 12:00 12/20/24 12:00 12/20/24 11:54 12/20/24 11:34 12/20/24 11:22 12/20/24 11:21 12/20/24 11:09 12/20/24 11:05 12/20/24 11:02 Room Air 12/20/24 10:07 Room Air Code Status & VTE Plan VTE Prophylaxis Plan VTE Prophylaxis will be ordered: Yes
--- NOTE | 2024-12-20 17:41 | Electrocardiogram Report ---
Test Reason : Blood Pressure : */* mmHG Vent. Rate : 82 BPM Atrial Rate : 82 BPM P-R Int : 134 ms QRS Dur : 90 ms QT Int : 386 ms P-R-T Axes : 49 20 38 degrees QTcB Int : 450 ms Normal sinus rhythm Early transition Otherwise normal ECG When compared with ECG of 19-Nov-2024 09:20, No significant change was found Confirmed by Darian Vasquez ([id number]) on 12/20/2024 5:41:29 PM Referred By: REFERRED SELF Confirmed By: Darian Vasquez
[2024-12-20] MEDS: INSULIN ASPART PER UNIT CHARGE SC SCH (17:48)
--- NOTE | 2024-12-20 19:15 | XRay Report ---
INDICATION: Pain TECHNIQUE: 3 views of the lumbosacral spine were obtained. COMPARISON: None FINDINGS: Postoperative changes of L3-S1 posterior instrumented fusion with bilateral stabilizing rods, bilateral pedicle screws and intervertebral disc spacers at L3-4 and L4-5 disc spaces. No significant vertebral body height loss or spondylolisthesis identified. No displaced acute osseous process is identified. No perihardware lucency. Partially included right hip arthroplasty. IMPRESSION: Postoperative changes of L3-S1 posterior instrumented fusion as above. Electronically signed by Saul Hsieh 12-20-2024 7:14 PM
[2024-12-20] MEDS: PRAVASTATIN SOD 40 MG TAB PO SCH (20:22)
[2024-12-20] MEDS: METOPROLOL TARTRATE 25 MG TAB PO SCH (20:22)
[2024-12-20] MEDS: LATANOPROST 0.005% OP SOLN 2.5 ML BTL OP SCH (20:22)
[2024-12-20] MEDS: DOXYCYCLINE HYCLATE 100 MG in DEXTROSE 5% MINI-B 100 ML IV SCH (20:23)
[2024-12-20] MEDS: ACETAMINOPHEN 1,000 MG/100 ML VIAL IV PRN (20:26)
[2024-12-21] MEDS: HYDROmorphone INJ 1 MG/ML SYRINGE IV PRN (04:24)
[2024-12-21 06:52] LABS: Hematocrit (blood only) 25.3 % (42.0-52.0); Hemoglobin 8.6 g/dl (14.0-18.0); Immature Granulocytes # (auto) 0.37 K/uL (0.01-0.20); Immature Granulocytes % (auto) 3.7 %; Mean Corpuscular Hemoglobin 30.9 pg (25.0-34.0); Mean Corpuscular Volume 91.0 fL (80.0-100.0); Platelet Count 219 K/uL (130-400); RDW Standard Deviation 44.5 fL (36.4-46.3); Red Blood Count 2.78 M/uL (4.70-6.10); White Blood Count 10.05 K/ul (4.8-10.8)
[2024-12-21 07:20] LABS: Anion Gap 6.0 (3-11); Blood Urea Nitrogen 16.0 mg/dl (6-23); Calcium 8.4 mg/dl (8.6-10.3); Carbon Dioxide 28.0 mmol/L (21-32); Chloride 97.0 mmol/L (98-107); Creatinine Clr Calc Pharmacy 117.7 ml/min; Glucose 139.0 mg/dl (70-99(Fasting)); Potassium 4.1 mmol/L (3.5-5.1); Sodium 131.0 mmol/L (136-145)
[2024-12-21] MEDS: ACETAMINOPHEN 500 MG TAB PO PRN (08:08)
[2024-12-21] MEDS: MAGNESIUM HYDROXIDE SUSP 30 ML UDC PO PRN (08:08)
[2024-12-21] MEDS: TIMOLOL MALEATE 0.5% OP SOLN 5 ML BTL OP SCH (08:08)
[2024-12-21] MEDS: LOSARTAN POTASSIUM 50 MG TAB PO SCH (08:09)
[2024-12-21] MEDS: ASPIRIN 81 MG ECTAB PO SCH (08:09)
[2024-12-21] MEDS: hydroCHLOROthiazide 25 MG TAB PO SCH (08:09)
[2024-12-21] MEDS: LANTUS PER UNIT CHARGE SC SCH (08:24)
--- NOTE | 2024-12-21 10:04 | Orthopedic Progress Note ---
Date of Service December 21, 2024 Assessment & Plan (1) Postoperative back pain: Admission and Anticipated Discharge Date Admission Date: December 20, 2024 Subjective Back pain improving tolerating physical therapy. She is Physical Exam Physical Exam: Patient is in chair at the bedside. Comfortable. Distracted testing. Incisions healing appropriately. Results & Data Vital Signs (Past 12 Hours) Vital Signs Temp Pulse Resp BP Pulse Ox O2 Del Method 12/21/24 08:16 36.8 C 72 18 138/69 93 Room Air
--- NOTE | 2024-12-21 10:21 | Pharmacy Report ---
Pharmacy Glycemic Short Note 2 - Date of Service December 21, 2024 - Glycemic Short BSG Results (Last 24 hours): 12/20/24 12/20/24 12/20/24 10:50 11:21 16:24 Glucose 172 H POC Glucose 160 H POC Glucose (other) 167 H 12/20/24 12/21/24 12/21/24 20:56 05:56 07:31 Glucose 139 H POC Glucose 109 H 150 H POC Glucose (other) OUTPATIENT ANTIDIABETIC REGIMEN: * metformin 500mg po QPM * semaglutide 2mg SQ weekly HbA1c: 6.8% on 11/19/24 ASSESSMENT: 12/21/24: * Fasting blood sugar of 150 mg/dL this morning - will add low-dose basal insulin * Do not anticipate any other changes to glycemic regimen today * Diet ordered 12/20/24: * Fabrice is a 74 year old male who was admitted today for intractable back pain following back surgery on 12/14/24. Pharmacy has been consulted for glycemic management while he is admitted. * BSG on arrival was 167mg/dL. Will not start basal insulin at this time but will start a weight based bolus insulin regimen with a stress between 1 and 2 (using adjusted body weight). PLAN FOR INPATIENT GLYCEMIC CONTROL: * Hold outpatient diabetes medications * Basal insulin * Lantus 10 units SC daily * Bolus insulin * NovoLog per scale ACHS or Q6hrs while NPO * Goal Range: Low 110 mg/dL - High 140 mg/dL * Correction Factor: 30 mg/dL/unit * Nutritional / Prandial insulin per carb ratio of 1 unit per 10 grams CHO consumed
--- NOTE | 2024-12-21 12:15 | Hospitalist Progress Note ---
"Date of Service December 21, 2024 Assessment & Plan (1) Fever: (2) Back pain: (3) Diabetes: (4) HTN (hypertension): Plan Fabrice is a 74-year-old male with a past medical history of hypertension and diabetes and recent back surgery with Dr. Yoder who presents to the hospital with worsening back pain fevers and chills. Hospital medicine consulted for medical management #Febrile illness | recent back surgery/acute back pain Recent back surgery with Dr. Yoder 12/14 Source: Suspected pneumonia based on CXR, however stable on room air minimal symptoms. Could be atelectasis as he has been very sedentary last 3 days UA without signs of infection, no skin changes on lower back wound, BioFire negative. With mild leukocytosis Blood cultures 24 hours - would not recommend discharge until these reach the 48 hour level Sputum culture ordered Continue broad-spectrum antibiotics with cefepime and doxycycline #Hypertension | HLD Continue losartan and metoprolol tartrate twice daily Hold HCTZ due to hyponatremia- monitor AM labs and PO intake Continue statin and ASA 81mg #Hyponatremia Sodium mildly low at 132 down from baseline of 135. Takes HCTZ at home and has been having low-grade fevers, likely poor p.o. intake Hold HCTZ appetite is improving, recheck in AM - add serum osm #Anemia Hemoglobin low at 9.1 --> 8.6 down from 10.9 on the day of discharge. No evidence of bleeding from anywhere, is hemodynamically stable. Likely due to blood loss from previous back surgery Follow CBC #Diabetes mellitus type II Hold Ozempic and metformin Pharmacy glycemic consult per primary team Thank you for allowing us to participate in the care of this patient, please reach out with any questions or concerns. Hospital Medicine will continue to follow. Admission and Anticipated Discharge Date Admission Date: December 20, 2024 Supervising Physician Co-Signing Physician Notes Attending Attestation: Chart reviewed, care plan d/w SUJEY Winchester. I agree with the adkins components of her documentation. Gaston Howard MD Subjective Patient seen sitting up in the chair. Denies pulmonary complaints, no fevers or chills. Pain control is improving Review of Systems Review of Systems: All systems reviewed & are unremarkable except as noted in Subjective Physical Exam Physical Exam: General: NAD, VS as above Resp: normal respiratory effort, On room air, diminished in the bases CV: RRR, no murmur, Abd: normal bowel sounds, non tender, Soft back: Incision with Steri-Strips covering, no erythema or purulent drainage. Extremities: Moves all extremities, no edema Neuro: A&O x3, Skin: intact, no lesions noted. Results & Data Results & Data Vital Signs (Past 12 Hours) Vital Signs Temp Pulse Resp BP Pulse Ox O2 Del Method 12/21/24 08:16 98.2 F 72 18 138/69 93 Room Air Laboratory Results cbc and chemistry reviewed PG Care Time/CCT Total # of Minutes Spent Total Time Spent with Patient: Total time spent is greater than 50% in coordination of care (as documented) at patient's floor/unit and/or counseling patient: Coding Level of Care Code 23210 SUB INP/OBS CARE 2/35MIN Diagnoses Fever R50.9 Fever type: unspecified Back pain M54.9 Diabetes E11.9 HTN (hypertension) I10 (1) Fever Fever type: unspecified Qualified Code(s): R50.9 - Fever, unspecified"
[2024-12-21] MEDS: POLYETHYLENE (MIRALAX) 17 GM PACK PO SCH (14:25)
[2024-12-22 06:21] LABS: Hematocrit (blood only) 26.2 % (42.0-52.0); Hemoglobin 8.6 g/dl (14.0-18.0); Mean Corpuscular Hemoglobin 30.5 pg (25.0-34.0); Mean Corpuscular Volume 92.9 fL (80.0-100.0); Platelet Count 209 K/uL (130-400); RDW Standard Deviation 45.1 fL (36.4-46.3); Red Blood Count 2.82 M/uL (4.70-6.10); White Blood Count 8.67 K/ul (4.8-10.8)
[2024-12-22 06:37] LABS: Anion Gap 7.0 (3-11); Blood Urea Nitrogen 19.0 mg/dl (6-23); Calcium 8.6 mg/dl (8.6-10.3); Carbon Dioxide 29.0 mmol/L (21-32); Chloride 94.0 mmol/L (98-107); Creatinine Clr Calc Pharmacy 125.5 ml/min; Glucose 121.0 mg/dl (70-99(Fasting)); Magnesium 2.1 mg/dl (1.7-2.4); Potassium 4.1 mmol/L (3.5-5.1); Sodium 130.0 mmol/L (136-145)
--- NOTE | 2024-12-22 12:35 | Hospitalist Progress Note ---
Date of Service December 22, 2024 Assessment & Plan (1) Fever: (2) Back pain: (3) Hyponatremia: (4) Acute blood loss anemia: (5) Diabetes: (6) HTN (hypertension): Plan 74yo male with hypertension and diabetes - recent lumbar back surgery with Dr. Yoder on 12/14/24 (L3-S1 fusion) - who presented to the hospital with worsening back pain, fevers and chills. #Recent fevers/chills - -had such at home prior to admission -no fevers/chills during his hospitalization -blood cx's negative; u/a not suggestive of UTI; respiratory BioFire negative -chest x-ray without definitive pneumonia -has been on cefepime/doxy empirically -in light of patient feeling well, no fevers, nothing infectious found to date - will stop abx today and observe #Hyponatremia - -baseline Na 135 -takes HCTZ chronically - placed on hold -Na level has slowly drifted down to 130 this am -urine osm elevated, urine Na 30, serum osm 270s -although he has dry mouth he otherwise looks euvolemic -will add NaCl tabs - 1gm BID -repeat BMP am #Acute blood loss anemia - -2nd to recent surgery (EBL was 1000ml during his lumbar fusion) -pre-op Hb 14.1 -Hb now mid 8's -would benefit from iron -will give IV venofer 300mg x 1 -at this point there are no signs of ongoing bleeding from recent operative site #Hypertension - -Continue losartan and metoprolol tartrate twice daily -Hold HCTZ due to hyponatremia #hyperlipidemia - -Continue statin and ASA 81mg #Diabetes mellitus type II - -Hold Ozempic and metformin -Pharmacy glycemic consult appreciated -cont lantus + novolog #morbid obesity - BMI ~40 pt's updated at bedside cont PT/OT our team will continue to follow Admission and Anticipated Discharge Date Admission Date: December 20, 2024 Subjective no BM in several days, but passing plenty of flatus denies fevers, chills, significant cough, URI symptoms, nausea, vomiting or diarrhea eating well he states he is thirsty denies any dyspnea still with low back pain but making progress with therapy at bedside Review of Systems Review of Systems: cv - no cp pulm - no dyspnea or DAILEY - no dysuria Physical Exam Physical Exam: gen - obese, sitting in chair, NAD neck - no JVD mouth - MM dry heart - RRR, s1 s2, no murmur lungs - CTA b/l abd - soft NT ND BS+ ext - pulses b/l feet 2+, no edema skin - incision lumbar spine clean, no drainage Results & Data Results & Data Vital Signs (Past 12 Hours) Vital Signs Temp Pulse Resp BP Pulse Ox O2 Del Method 12/22/24 08:11 36.8 C 83 19 161/72 H 93 Room Air Laboratory Results Laboratory Results - last 24 hr 12/21/24 12/21/24 12/22/24 16:32 20:50 05:31 WBC 8.67 RBC 2.82 L Hgb 8.6 L Hct 26.2 L MCV 92.9 MCH 30.5 MCHC 32.8 RDW Std Deviation 45.1 RDW Coeff of Gwen 13.3 Plt Count 209 MPV 10.2 Sodium 130 L Potassium 4.1 Chloride 94 L Carbon Dioxide 29 Anion Gap 7 BUN 19 Creatinine 0.76 Est Cr Clr Drug Dosing 125.5 eGFR 94.91 BUN/Creatinine Ratio 25.0 H Glucose 121 H POC Glucose 96 109 H Osmolality 277 L Calcium 8.6 Magnesium 2.1 B-Natriuretic Peptide 128 H Urine Osmolality Ur Random Sodium 12/22/24 12/22/24 12/22/24 07:32 11:14 11:32 WBC RBC Hgb Hct MCV MCH MCHC RDW Std Deviation RDW Coeff of Gwen Plt Count MPV Sodium Potassium Chloride Carbon Dioxide Anion Gap BUN Creatinine Est Cr Clr Drug Dosing eGFR BUN/Creatinine Ratio Glucose POC Glucose 126 H 107 H Osmolality Calcium Magnesium B-Natriuretic Peptide Urine Osmolality 573 Ur Random Sodium 32 PG Care Time/CCT Total # of Minutes Spent Total Time Spent with Patient: Total time spent is greater than 50% in coordination of care (as documented) at patient's floor/unit and/or counseling patient: Coding Level of Care Code 21442 SUB INP/OBS CARE 3/50MIN Diagnoses Fever R50.9 Fever type: unspecified Back pain M54.9 Hyponatremia E87.1 Acute blood loss anemia D62 Diabetes E11.9 HTN (hypertension) I10 (1) Fever Fever type: unspecified Qualified Code(s): R50.9 - Fever, unspecified
[2024-12-22] MEDS ORDERED: SODIUM CHLORIDE 0.9% 500 ML IV SCH (12:45)
[2024-12-22] MEDS: SODIUM CHLORIDE 1 GM TABLET PO SCH (14:14)
--- NOTE | 2024-12-22 14:21 | Orthopedic Progress Note ---
Date of Service December 22, 2024 Assessment & Plan (1) Status post spinal surgery: Plan: At this time we will continue physical therapy and Occupational Therapy. Will assess his progress and consider rehab versus home health. Admission and Anticipated Discharge Date Admission Date: December 20, 2024 Subjective Back symptoms are improving. He is tolerating physical therapy. Physical Exam Physical Exam: Patient is in the chair at the bedside. Discussed active testing. Results & Data Vital Signs (Past 12 Hours) Vital Signs Temp Pulse Resp BP Pulse Ox O2 Del Method 12/22/24 08:11 36.8 C 83 19 161/72 H 93 Room Air Queries Orthopedic Spine Obesity: Yes
[2024-12-22] MEDS: IRON SUCROSE 300 MG in SODIUM CHLORIDE 0.9% 250 ML IV ONE (17:34)
[2024-12-23 06:20] LABS: Anion Gap 4.0 (3-11); Blood Urea Nitrogen 18.0 mg/dl (6-23); Calcium 8.5 mg/dl (8.6-10.3); Carbon Dioxide 30.0 mmol/L (21-32); Chloride 96.0 mmol/L (98-107); Creatinine Clr Calc Pharmacy 114.9 ml/min; Glucose 118.0 mg/dl (70-99(Fasting)); Potassium 4.1 mmol/L (3.5-5.1); Sodium 130.0 mmol/L (136-145)
--- NOTE | 2024-12-23 08:29 | Orthopedic Progress Note ---
Date of Service December 23, 2024 Assessment & Plan (1) Status post spinal surgery: Plan: At this time we are awaiting placement for rehab versus home health. I will anticipate discharge either today or tomorrow. Admission and Anticipated Discharge Date Admission Date: December 20, 2024 Subjective Back pain and overall function markedly improved. Physical Exam Physical Exam: Patient is in the chair at the bedside. Is good strength testing. Results & Data Vital Signs (Past 12 Hours) Vital Signs Temp Pulse Resp BP Pulse Ox O2 Del Method 12/23/24 07:03 36.6 C 64 15 146/71 H 93 Room Air 12/22/24 20:53 36.8 C 75 18 156/74 H 95 Room Air Queries Orthopedic Spine Obesity: Yes
--- NOTE | 2024-12-23 09:14 | Hospitalist Progress Note ---
Date of Service December 23, 2024 Assessment & Plan (1) Fever: (2) Back pain: (3) Hyponatremia: (4) Acute blood loss anemia: (5) Diabetes: (6) HTN (hypertension): Plan 74yo male with hypertension and diabetes - recent lumbar back surgery with Dr. Yoder on 12/14/24 (L3-S1 fusion) - who presented to the hospital with worsening back pain, fevers and chills. #Recent fevers/chills - -had such at home prior to admission -no fevers/chills during his hospitalization -blood cx's negative; u/a not suggestive of UTI; respiratory BioFire negative -chest x-ray without definitive pneumonia -has been on cefepime/doxy empirically -in light of patient feeling well, no fevers, nothing infectious found to date, Antibiotics were discontinued on 12/22 #Hyponatremia - -baseline Na 135 -takes HCTZ chronically - placed on hold -Na level has slowly drifted down to 130 this am -urine osm elevated, urine Na 30, serum osm 270s -although he has dry mouth he otherwise looks euvolemic -will add NaCl tabs - 1gm BID -repeat BMP am #Acute blood loss anemia - -2nd to recent surgery (EBL was 1000ml during his lumbar fusion) -pre-op Hb 14.1 -Hb now mid 8's -would benefit from iron -will give IV venofer 300mg x 1 -at this point there are no signs of ongoing bleeding from recent operative site #Hypertension - -Continue losartan and metoprolol tartrate twice daily -Hold HCTZ due to hyponatremia #hyperlipidemia - -Continue statin and ASA 81mg #Diabetes mellitus type II - -Hold Ozempic and metformin -Pharmacy glycemic consult appreciated -cont lantus + novolog #morbid obesity - BMI ~40 pt's updated at bedside cont PT/OT our team will continue to follow Admission and Anticipated Discharge Date Admission Date: December 20, 2024 Subjective No doing well in good spirits. Sitting up in a chair. student success counselor at bedside. States his pain is improved remains around 6-7 out of 10. No radiation of pain. No alarm symptoms no saddle anesthesia numbness tingling weakness urinary retention incontinence fevers chills or any other symptoms. States he has been constipated for the past 2 to 3 days but this is normal for him usually has a bowel movement every 4 days or so We discussed at time of discharge importance of close follow-up and strict return precautions including fevers or recurrent back pain worsen or develops any alarm symptoms he verbalized Review of Systems Review of Systems: Negative except as in HPI Physical Exam Physical Exam: gen - obese, sitting in chair, NAD neck - no JVD mouth - MM dry heart - RRR, s1 s2, no murmur lungs - CTA b/l abd - soft NT ND BS+ ext - pulses b/l feet 2+, no edema skin - incision lumbar spine clean, no drainage . No vertebral tenderness or step-off Results & Data Results & Data Vital Signs (Past 12 Hours) Vital Signs Temp Pulse Resp BP Pulse Ox O2 Del Method 12/23/24 07:03 36.6 C 64 15 146/71 H 93 Room Air PG Care Time/CCT Total # of Minutes Spent Total Time Spent with Patient: Total time spent is greater than 50% in coordination of care (as documented) at patient's floor/unit and/or counseling patient: Coding Level of Care Code 72654 SUB INP/OBS CARE 2/35MIN Diagnoses Fever R50.9 Fever type: unspecified Back pain M54.9 Hyponatremia E87.1 Acute blood loss anemia D62 Diabetes E11.9 HTN (hypertension) I10 (1) Fever Fever type: unspecified Qualified Code(s): R50.9 - Fever, unspecified
[2024-12-23 11:29] VITALS: BP 143/76; PULSE 63; RESP 16; TEMP 98.1; O2SAT 96
--- NOTE | 2024-12-24 08:17 | Discharge Summary ---
Date of Service December 24, 2024 Admission HPI Per Admitting Provider This is a 74-year-old male status post multilevel lumbar decompression fusion. He was doing well at home postop day 5 and 6 when he began experiencing severe back pain. Unfortunately pain medication was not helpful. He denies any leg pain numbness or tingling. He is more comfortable now that he has been in the hospital and had some pain medications. Bowels have been working. Denies any nausea or vomiting. Principal Diagnosis Lumbar spondylosis with radiculopathy Discharge Data Allergies Allergy/AdvReac Type Severity Reaction Status Date / Time No Known Allergies Allergy Verified 12/14/24 07:57 Consultations 12/20/24 12:16 ED Decision to Admit Stat 12/20/24 14:39 Consult Internal Medicine Routine Hospital Course (1) Postoperative back pain: Patient was admitted postoperatively with significant back pain and inability to progress at home. Upon admission pain was improved over the course of few days. He tolerated physical therapy. Was fit enough to discharge to rehab. Discharge orders instructions from the chart for further review. Total Time Total Time Spent Total Time Spent (In Minutes): 20 minutes Discharge Plan Discharge Items Patient Disposition: Transfer Inpatient Rehab Fac Reason For Visit: POST OP BACK PAIN Discharge Diagnosis: post op back pain Condition on Discharge: Fair Activity: As commented below Non-emergency contact: Primary Care Provider Call non-emergency contact if: you have any medication questions Follow-up/Referrals: Olive Najera DO [Primary Care Provider] - Diet: Regular Addtl Attending Provider Instructions: ACTIVITY RECOMMENDATIONS: SELF CARE INSTRUCTIONS AFTER THORACIC/LUMBAR FUSIONS 1. You may walk to your tolerance. It is good exercise for your legs and back. Expect some back and intermittent leg aches and pains. 2. You may perform "counter-top" level activities (make a sandwich, isi with a project, etc.). 3. No bending or lifting of more than 10 pounds or back twisting of any nature (roll like a log when turning in bed). 4. You may ride in a car for 20-30 minutes at a time. No driving until after your first visit with your doctor. 5. Frequent changes of position and restricting sitting to 30 minutes at a time will help limit the amount of back spasms and stiffness you may experience. 6. You may discontinue the use of ambulatory aids (cane, crutches, etc.) once your strength and confidence allow. 7. You may sewing teacher the shower and let water strike your incision when you arrive home at least once daily. Do not take a tub bath, sit in a hot tub or go into a swimming pool until after your first recheck in the office. 8. You may resume previous diet. SPECIAL CARE INSTRUCTIONS: VERY IMPORTANT TO READ AND REVIEW A. Your surgical incision has been closed with a cosmetic suture under the skin that will dissolve in about 6 weeks. In 14 days, you can use a pair of clean scissors and cut the suture that is left outside of the skin at the ends of your incision. 1. The small skin tapes can be removed 7 days after surgery if they have not fallen off by that point. 2. You may keep the wound open to air as much as possible to promote healing after post-op day number 5 unless told otherwise by your doctor. 3. If you think the wound looks like it is becoming infected (redness or worsening drainage) and/or you are experiencing fever, chill or worsening back pain and muscle spasms, contact the office so that we may evaluate you as soon as possible. B. Complications are uncommon, but please contact us if you have any signs or symptoms of: 1. wound infection (fever higher than 102.5 degrees F, redness, separation of wound, drainage, or increasing pain from the incision) 2. blood clots in legs (pain, swelling, redness and warmth in legs) 3. urinary tract infection (fever higher than 102.5 degrees F, burning upon urination or increased frequency of urination) 4. nerve problems (inability to walk on your toes or heels, numbness, loss of bowel or bladder control) 5. any other symptoms that concern you C. Please call the office at if you have any concerns or questions about your operation or recovery. D. No smoking! Smoking drastically decreases the chance of a solid fusion. E. Do not take any anti-inflammatory medications (Indocin, Advil, Motrin, Aspirin, Naprosyn, etc.) as these may inhibit the chance of a solid fusion. Tylenol is okay to take for pain. MANAGING PAIN AFTER SPINAL SURGERY 1. Narcotic medication is intended for short-term use and will be provided for surgical pain. Surgical pain usually lasts for a period of 4-6 weeks. Narcotic medication includes Percocet, Vicodin, Darvocet, Tylenol #3 or Lortab. 2. Longer-term pain is more appropriately treated with non-narcotic medication such as Tylenol ES. 3. Muscle spasm is not appropriately treated with narcotics. Muscle relaxers such as Soma, Flexeril or Skelaxin can be used along with Tylenol ES. 4. Remember that we all live with some "aches and pains". This is not unusual or uncommon after an injury or as we get older. a. Back pain is expected and may include muscle spasms for 4 to 6 weeks after surgery. The pain should gradually improve. If the pain worsens for no apparent reason, please contact the office. b. Intermittent leg pain may also be experienced and should not be concerned about unless it worsens for no apparent reason. If so, please contact the office. 5. We will provide appropriate medication within the normal guidelines of their prescribed use. We will also be very cautious and aware of potential abuse and extended duration of patients' medication needs. a. Pain medications are for your comfort and to assist with sleep and rest so that the tissue can heal. They are not provided in order to return to normal activity and should not be used through the day. To do so or worsening pain at night can result from ongoing tissue damage and development of tolerance to the prescribed medicine. 6. Please allow 2-3 days to process refills. Prescriptions will not be mailed but must be picked up at the office. FOLLOW UP VISIT: Keep your scheduled follow-up appointment. Any questions, please call the office at . Pending Studies at Discharge: No Stand-Alone Forms: My [facility] Skilled Items Patient informed of condition?: Yes DNR: No Discharge Level of Care: Acute rehab Communicable Disease: No Discharge Prognosis: Improving Lines: None Urinary Catheter: No Medications and DC Order Prescriptions: Continued metformin 500 mg Tablet 500 mg PO QPM topiramate 25 mg Tablet 25 mg PO QAM PRN (Reason: Pain) pravastatin 80 mg Tablet 80 mg PO HS gabapentin 300 mg Capsule 900 mg PO HS PRN (Reason: Pain) losartan 100 mg Tablet 100 mg PO QAM metoprolol tartrate 25 mg Tablet 25 mg PO BID hydrochlorothiazide 12.5 mg Tablet 12.5 mg PO QAM multivitamin Tablet 1 tab PO QAM latanoprost 0.005 % Drops 1 drp OPHTHALMIC (EYE) PM ascorbic acid (vitamin C) [Vitamin C] 500 mg Tablet 500 mg PO DAILY furosemide 20 mg Tablet 20 mg PO DAILY PRN (Reason: Edema) aspirin 81 mg Capsule 81 mg PO DAILY Ozempic 2 mg/dose (8 mg/3 mL) Pen Injector 2 mg SUBCUT WK tramadol 50 mg tablet 50 mg PO Q6H PRN (Reason: pain, moderate) Qty: 30 0RF oxycodone 5 mg tablet 5 mg PO Q6H PRN (Reason: pain) Qty: 30 0RF Rx Instructions: Oxycodone for severe pain only timolol maleate 0.5 % drops 1 drp OPB DAILY Discharge Orders: Discharge Order (Routine); Ordered 12/23/24 Ordered By: Ken Yoder Admission Data Admit Date/Time: 12/20/24 12:36 Attending Provider: Ken Yoder Admit Provider: Ken Yoder Primary Care Provider: Olive Najera Other Providers: Ken Yoder; Mercedes Fraser; [facility] Other Interventions: Discharge Summary Assessment (RN) Last Done: 12/23/24 10:35
== END 2024-12-23 14:00 | DRG 948 ==
LOC: ED 10:05 → 3E 12:36